=== PATIENT | female | born 1935 | race Caucasian/White ===

== ENCOUNTER 2017-04-24 14:43 | Emergency (ER) | payer MEDICARE ==
[~2017-04-24] VITALS: Ht 157.5 cm; Wt 58.0 kg
[~2017-04-24 14:43] MED LIST: ATOR20TA PO; BRIM.2%O OU; HYDR12.56; TRAV0.00 EACH EYE
[2017-04-24 14:45] VITALS: BP 123/77; PULSE 93; RESP 12; TEMP 97.8; O2SAT 97
[2017-04-24 14:48] VITALS: BP 139/71; PULSE 83; RESP 18; O2SAT 99
--- NOTE | 2017-04-24 15:18 | PD ---
HPI Chief Complaint: Neuro Symptoms/ Deficits Time Seen by Provider: 15:03 Travel History International Travel<30 days: No Contact w/Intl Traveler<30days: No Traveled to known affect area: No History of Present Illness HPI 82-year-old female with history of intracranial hemorrhage in 2014, presents to the ER today sent in by Dr. Lopez because she apparently had told his nurses about having headaches and blurry vision at the office. They sent her down here to be evaluated for these headaches. However, patient currently states her headache is a 2 out of 10, and her blurry vision is not new. Her states that she has had the same symptoms since her stroke in 2014. They deny any new issues. I have talked to Dr. Ruiz who states that he had not evaluated her and wanted her to be evaluated because the nurses stated that her headache was new. Patient reports no fevers, neck stiffness, new neurological deficits. Modifying Factors: None Associated Signs & Symptoms: Headaches, blurry vision Risk Factors: ICH PFSH Past Medical History Heart Rhythm Problems: Yes (tachycardia) Cancer: No Cardiovascular Problems: No High Cholesterol: Yes Endocrine: No Gastrointestinal Disorders: Yes (DIVERTICULITIS) Genitourinary: No Hypertension: Yes Immune Disorder: No Musculoskeletal: No Neurologic: No Psychiatric: No Reproductive: Yes (HYSTERECTOMY) Respiratory: Yes (PNEUMONIA POST OP 02/2007) Past Surgical History Abdominal Surgery: Yes (RUPTURED DIVERTICULUM WITH REPAIR AND COLOSTOMY) Arteriovenous Shunt: No Gynecologic Surgery: Yes (HYSTERECTOMY) Hysterectomy: Yes Insulin Pump: No Joint Replacement: Yes (RIGHT KNEE REPLACEMENT) Other Surgery: Yes Social History Alcohol Use: No Tobacco Use: No Substance Use: No Allergies-Medications (Allergen,Severity, Reaction): Coded Allergies: No Known Allergies (Verified , 05/12/15) Reported Meds & Prescriptions Reported Meds & Active Scripts Active Reported Hydrochlorothiazide 12.5 Mg Tab Atorvastatin 20 mg tab (Atorvastatin Calcium) 20 Mg Tab 20 Mg PO DAILY 30 Days Travatan Z (Travoprost) 0.004 % Trevor 1 Drop EACH EYE HS Alphagan 0.2% (Brimonidine Tartrate) 5 Ml Soln 1 Drop OU HS Travatan Z (Travoprost) 0.004 % Trevor 1 Drop EACH EYE HS Alphagan 0.2% (Brimonidine Tartrate) 5 Ml Soln 1 Drop OU HS Review of Systems Except as stated in HPI: all other systems reviewed are Neg Physical Exam Narrative GENERAL: Well-developed pleasant elderly white female who is awake, alert, oriented 3. Currently not in acute distress. SKIN: Focused skin assessment warm/dry. HEAD: Atraumatic. Normocephalic. EYES: Pupils equal and round. No scleral icterus. No injection or drainage. ENT: No nasal bleeding or discharge. Mucous membranes pink and moist. NECK: Trachea midline. No JVD. CARDIOVASCULAR: Regular rate and rhythm. No murmur appreciated. RESPIRATORY: No accessory muscle use. Clear to auscultation. Breath sounds equal bilaterally. GASTROINTESTINAL: Abdomen soft, non-tender, nondistended. Hepatic and splenic margins not palpable. MUSCULOSKELETAL: No obvious deformities. No clubbing. No cyanosis. No edema. NEUROLOGICAL: Awake and alert. No obvious cranial nerve deficits. Motor grossly within normal limits. Normal speech. Ambulatory without issues. PSYCHIATRIC: Appropriate mood and affect; insight and judgment normal. Data Data Last Documented VS Vital Signs Date Time Temp Pulse Resp B/P Pulse Ox O2 Delivery O2 Flow Rate FiO2 04/24/17 14:48 83 18 139/71 99 04/24/17 14:45 97.8 MDM Medical Decision Making Medical Screen Exam Complete: Yes Emergency Medical Condition: Yes Medical Record Reviewed: Yes Differential Diagnosis Headaches and blurry vision which are chronic Narrative Course At this point, both patient and state that they are not having any new symptoms. They are uncertain why they were sent to the ER. I talked to them regarding the concerns and have offered to do a CAT scan but they state that they are following up next month with Dr. Valdivia and they get yearly CAT scans. They're declining getting further testing at this time. Return for new issues as needed. The plan was discussed with patient and and they state understanding. Diagnosis Primary Impression: Chronic headaches Disposition: 01 DISCHARGE HOME Condition: Stable Ahsan Gonzalez MD Apr 24, 2017 15:18
== END 2017-04-24 15:50 | disposition home or self-care (01) ==
LOC: NEPC 14:43
DX: R51 Headache (principal); H53.8 Other visual disturbances; I10 Essential (primary) hypertension
CPT/HCPCS: 99281

== ENCOUNTER 2018-04-04 10:08 | Observation (INO) | payer MEDICARE ==
[~2018-04-04] VITALS: Ht 157.5 cm; Wt 52.0 kg
[2018-04-04 10:27] VITALS: BP 115/69; PULSE 115; RESP 24; TEMP 97.3; O2SAT 97
[2018-04-04] MEDS ORDERED: BRIM0.155 EACH EYE (11:25)
[2018-04-04] MEDS ORDERED: LATA0.002 EACH EYE (11:25)
[2018-04-04] MEDS ORDERED: HYDR12.57 PO (11:25)
[2018-04-04] MEDS ORDERED: ATOR20TA15 PO (11:25)
[2018-04-04] MEDS ORDERED: SODIUM CHLOR 0.9% 1000 ML INJ 1,000 ML IV SCH (11:43)
[2018-04-04] MEDS ORDERED: SODIUM CHLORIDE 0.9% FLUSH 10 ML FLUSH IV FLUSH PRN ×2 (11:45→17:30)
--- NOTE | 2018-04-04 12:11 | PD ---
HPI Chief Complaint: Back/ Neck Pain or Injury Time Seen by Provider: 11:43 Travel History International Travel<30 days: No Contact w/Intl Traveler<30days: No Traveled to known affect area: No History of Present Illness HPI 83-year-old female patient with history of previous ICH, multiple medical issues , presents to the ER today brought in by her because she states that she had rolled over in bed a few days ago and started having lower back pains. She also has not been eating well or drinking well according to her for several days. She states that she is having trouble, feels like he has to urinate all the time. She denies any fevers, no vomiting, or other issues. Modifying Factors: None Associated Signs & Symptoms: Lower back pain, poor p.o. intake, urinary symptoms Risk Factors: None PFSH Past Medical History Heart Rhythm Problems: Yes (tachycardia) Cancer: No Cardiovascular Problems: No High Cholesterol: Yes Cerebrovascular Accident: Yes Endocrine: No Gastrointestinal Disorders: Yes (DIVERTICULITIS) Glaucoma: Yes Genitourinary: No Hypertension: Yes Immune Disorder: No Musculoskeletal: No Neurologic: No Psychiatric: No Reproductive: Yes (HYSTERECTOMY) Respiratory: Yes (PNEUMONIA POST OP 02/2007) Past Surgical History Abdominal Surgery: Yes (RUPTURED DIVERTICULUM WITH REPAIR) Arteriovenous Shunt: No Gynecologic Surgery: Yes (HYSTERECTOMY) Hysterectomy: Yes Insulin Pump: No Joint Replacement: Yes (RIGHT KNEE REPLACEMENT) Other Surgery: Yes Social History Alcohol Use: No Tobacco Use: No Substance Use: No Allergies-Medications (Allergen,Severity, Reaction): Coded Allergies: No Known Allergies (Verified , 05/12/15) Reported Meds & Prescriptions Reported Meds & Active Scripts Active Reported Latanoprost Opth Drops (Latanoprost) 0.005% Drops 1 Drop EACH EYE HS Refrigerate until opened. Hydrochlorothiazide 12.5 Mg Cap 12.5 Mg PO DAILY Brimonidine Opth Drops (Brimonidine Tartrate) 0.15% Soln 1 Drop EACH EYE TID Atorvastatin (Atorvastatin Calcium) 20 Mg Tab 20 Mg PO HS Hydrochlorothiazide (Miscellaneous Medication) 12.5 Mg Tab Atorvastatin 20 mg tab (Atorvastatin Calcium) 20 Mg Tab 20 Mg PO DAILY 30 Days Travatan Z (Travoprost) 0.004 % Trevor 1 Drop EACH EYE HS Alphagan 0.2% (Brimonidine Tartrate) 5 Ml Soln 1 Drop OU HS Travatan Z (Travoprost) 0.004 % Trevor 1 Drop EACH EYE HS Alphagan 0.2% (Brimonidine Tartrate) 5 Ml Soln 1 Drop OU HS Review of Systems ROS Limitations: Poor Historian Except as stated in HPI: all other systems reviewed are Neg Physical Exam Narrative GENERAL: Well-developed elderly white female patient currently in mild distress. Awake and alert, oriented 3. SKIN: Focused skin assessment warm/dry. HEAD: Atraumatic. Normocephalic. EYES: Pupils equal and round. No scleral icterus. No injection or drainage. ENT: No nasal bleeding or discharge. Mucous membranes pink and moist. NECK: Trachea midline. No JVD. CARDIOVASCULAR: Regular rate and rhythm. No murmur appreciated. RESPIRATORY: No accessory muscle use. Clear to auscultation. Breath sounds equal bilaterally. GASTROINTESTINAL: Abdomen soft, mild lower abdominal tenderness with a little bit more right-sided tenderness without guarding or rebound, nondistended. Hepatic and splenic margins not palpable. MUSCULOSKELETAL: No obvious deformities. No clubbing. No cyanosis. No edema. BACK: No CVA tenderness. No rash. No point tenderness on palpation of the spine. NEUROLOGICAL: Awake and alert. No obvious cranial nerve deficits. Motor grossly within normal limits. Normal speech. PSYCHIATRIC: Appropriate mood and affect; insight and judgment normal. Data Data Last Documented VS Vital Signs Date Time Temp Pulse Resp B/P (MAP) Pulse Ox O2 Delivery O2 Flow Rate FiO2 04/04/18 15:29 101 18 152/65 (94) 98 Room Air 04/04/18 10:27 97.3 Orders Orders Complete Blood Count With Diff (04/04/18 11:43) Comprehensive Metabolic Panel (04/04/18 11:43) Lipase (04/04/18 11:43) Prothrombin Time / Inr (Pt) (04/04/18 11:43) Act Partial Throm Time (Ptt) (04/04/18 11:43) Urinalysis - C+S If Indicated (04/04/18 11:43) Ct Abd/Pel W Iv Contrast(Rout) (04/04/18 11:43) Iv Access Insert/Monitor (04/04/18 11:43) Ecg Monitoring (04/04/18 11:43) Oximetry (04/04/18 11:43) Sodium Chlor 0.9% 1000 Ml Inj (Ns 1000 M (04/04/18 11:43) Sodium Chloride 0.9% Flush (Ns Flush) (04/04/18 11:45) Ct Thor Spine W/O Contrast (04/04/18 11:43) Potassium Chlor 20 Meq Premix (Kcl 20 Me (04/04/18 14:30) Ct Lumb Spine W Iv Contrast (04/04/18 11:43) Iohexol 350 Inj (Omnipaque 350 Inj) (04/04/18 15:02) Labs Laboratory Tests Test 04/04/18 13:20 04/04/18 15:35 White Blood Count 10.2 TH/MM3 Red Blood Count 5.04 MIL/MM3 Hemoglobin 14.8 GM/DL Hematocrit 43.1 % Mean Corpuscular Volume 85.6 FL Mean Corpuscular Hemoglobin 29.4 PG Mean Corpuscular Hemoglobin Concent 34.3 % Red Cell Distribution Width 14.8 % Platelet Count 281 TH/MM3 Mean Platelet Volume 7.0 FL Neutrophils (%) (Auto) 79.3 % Lymphocytes (%) (Auto) 11.6 % Monocytes (%) (Auto) 8.1 % Eosinophils (%) (Auto) 0.3 % Basophils (%) (Auto) 0.7 % Neutrophils # (Auto) 8.1 TH/MM3 Lymphocytes # (Auto) 1.2 TH/MM3 Monocytes # (Auto) 0.8 TH/MM3 Eosinophils # (Auto) 0.0 TH/MM3 Basophils # (Auto) 0.1 TH/MM3 CBC Comment DIFF FINAL Differential Comment Prothrombin Time 10.4 SEC Prothromb Time International Ratio 1.0 RATIO Activated Partial Thromboplast Time 23.6 SEC Blood Urea Nitrogen 19 MG/DL Creatinine 1.00 MG/DL Random Glucose 87 MG/DL Total Protein 8.8 GM/DL Albumin 3.7 GM/DL Calcium Level 9.6 MG/DL Alkaline Phosphatase 105 U/L Aspartate Amino Transf (AST/SGOT) 55 U/L Alanine Aminotransferase (ALT/SGPT) 47 U/L Total Bilirubin 1.7 MG/DL Sodium Level 134 MEQ/L Potassium Level 2.8 MEQ/L Chloride Level 93 MEQ/L Carbon Dioxide Level 27.6 MEQ/L Anion Gap 13 MEQ/L Estimat Glomerular Filtration Rate 53 ML/MIN Lipase 134 U/L Urine Color LIGHT-YELLOW Urine Turbidity CLEAR Urine pH 8.0 Urine Specific Sylvester 1.047 Urine Protein TRACE mg/dL Urine Glucose (UA) NEG mg/dL Urine Ketones 40 mg/dL Urine Occult Blood TRACE Urine Nitrite NEG Urine Bilirubin NEG Urine Urobilinogen LESS THAN 2.0 MG/DL Urine Leukocyte Esterase NEG Urine RBC 2 /hpf Urine WBC 3 /hpf Urine Squamous Epithelial Cells <1 /hpf Urine Mucus FEW /lpf Microscopic Urinalysis Comment CULT NOT INDICATED MDM Medical Decision Making Medical Screen Exam Complete: Yes Emergency Medical Condition: Yes Medical Record Reviewed: Yes Interpretation(s) Laboratory Tests Test 04/04/18 13:20 04/04/18 15:35 Neutrophils (%) (Auto) 79.3 % (16.0-70.0) Monocytes (%) (Auto) 8.1 % (0.0-8.0) Neutrophils # (Auto) 8.1 TH/MM3 (1.8-7.7) Activated Partial Thromboplast Time 23.6 SEC (24.3-30.1) Blood Urea Nitrogen 19 MG/DL (7-18) Total Protein 8.8 GM/DL (6.4-8.2) Aspartate Amino Transf (AST/SGOT) 55 U/L (15-37) Total Bilirubin 1.7 MG/DL (0.2-1.0) Sodium Level 134 MEQ/L (136-145) Potassium Level 2.8 MEQ/L (3.5-5.1) Chloride Level 93 MEQ/L (98-107) Estimat Glomerular Filtration Rate 53 ML/MIN (>89) Urine Specific Sylvester 1.047 (1.002-1.035) Urine Ketones 40 mg/dL (NEG) Urine Occult Blood TRACE (NEG) Urine Mucus FEW /lpf (OCC) Last 24 hours Impressions [address] Spine CT 04/04/18 1143 Signed Impressions: CONCLUSION: 1. Minimal compression deformity of T8, probably subacute or old. Mild scolios is and kyphosis. No canal stenosis. Lumbar Spine CT 04/04/18 1143 Signed Impressions: CONCLUSION: 1. Rotatory lumbar levoscoliosis with moderate degenerative disc disease. No a cute fracture or spondylolisthesis. Multilevel lateral recess encroachment as a dean without significant central bony canal stenosis. Abdomen/Pelvis CT 04/04/18 1143 Signed Impressions: CONCLUSION: 1. Large 7.7 x 7.6 cm simple density cyst in the inferior pole the right kidne y. 2. Levoscoliosis of the lumbar spine centered at L2-3 level with degenerative spondylosis but no definite compression deformity. 3. Otherwise, no acute CT findings to explain patient's back pain. 4. Aorta is nonaneurysmal and without significant dissection. 5. Ancillary findings include mild bibasilar scarring, subcentimeter renal cys tic lesions which are too small to fully characterize, fat-containing anterior abdominal wall hernia and mild sigmoid diverticulosis. Differential Diagnosis UTI versus gastroenteritis versus appendicitis versus acute on chronic back pains versus spinal fractures Narrative Course CAT scan shows some signs of degenerative disc disease, renal cysts on the right , but did not show any signs of other acute processes. No signs of aortic aneurysms or obvious signs of diverticulitis, or other acute processes. Lab work was otherwise fairly unremarkable. She is not vomiting in the ER. However , she has a fairly low potassium. IV fluids and IV potassium was given in the ER. Planning to admit the patient as an observation for further treatment. She stopped having tremors after the IV potassium and been initiated. Case was discussed with Dr. Penn for admission. Diagnosis Primary Impression: Hypokalemia Additional Impression: Dehydration Admitting Information Admitting Physician Requests: Admit Ahsan Gonzalez MD April 04, 2018 12:11
[2018-04-04 13:44] LABS: AUTOMATED NEUTROPHIL # 8.1 TH/MM3 (1.8-7.7); BASOPHIL # 0.1 TH/MM3 (0-0.2); BASOPHIL % 0.7 % (0.0-2.0); EOSINOPHIL % 0.3 % (0.0-4.0); HEMATOCRIT 43.1 % (35.0-46.0); HEMOGLOBIN 14.8 GM/DL (11.6-15.3); LYMPH % 11.6 % (9.0-44.0); LYMPHOCYTE # 1.2 TH/MM3 (1.0-4.8); MEAN CELL VOLUME 85.6 FL (80.0-100.0); MEAN CORPUSCULAR HEMOGLOBIN 29.4 PG (27.0-34.0); MEAN CORPUSCULAR HGB CONC 34.3 % (32.0-36.0); MONO % 8.1 % (0.0-8.0); MONOCYTE # 0.8 TH/MM3 (0-0.9); NEUT % 79.3 % (16.0-70.0); PLATELET COUNT 281 TH/MM3 (150-450); RED BLOOD COUNT 5.04 MIL/MM3 (4.00-5.30); RED CELL DISTRIBUTION WIDTH 14.8 % (11.6-17.2); WHITE BLOOD COUNT 10.2 TH/MM3 (4.0-11.0)
[2018-04-04 13:52] LABS: PROTHROMBIN TIME - PATIENT 10.4 SEC (9.8-11.6)
[2018-04-04 14:08] LABS: ALBUMIN 3.7 GM/DL (3.4-5.0); ALKALINE PHOSPHATASE 105 U/L (45-117); ALT (GPT) 47 U/L (10-53); AST (GOT) 55 U/L (15-37); BICARBONATE 27.6 MEQ/L (21.0-32.0); BLOOD UREA NITROGEN 19 MG/DL (7-18); CALCIUM 9.6 MG/DL (8.5-10.1); CHLORIDE 93 MEQ/L (98-107); GLOMERULAR FILTRATION RATE 53 ML/MIN (>89); GLUCOSE,RANDOM 87 MG/DL (74-106); SODIUM (NA) 134 MEQ/L (136-145); TOTAL BILIRUBIN ADULT 1.7 MG/DL (0.2-1.0); TOTAL PROTEIN 8.8 GM/DL (6.4-8.2)
[2018-04-04] MEDS ORDERED: IOHEXOL 350 MG/ML 10 ML VIAL (for RAD DIAG) IVCONTRAST ONE (15:02)
--- NOTE | 2018-04-04 15:13 | RADRPT ---
EXAM DATE: 04/04/2018 3:01 PM EDT AGE/SEX: 83 years / Female INDICATIONS: Back pain for 2 days CLINICAL DATA: This is the patient's initial encounter. Patient reports that signs and symptoms have been present for 2 days and indicates a pain score of 8/10. MEDICAL/SURGICAL HISTORY: Hypertension. Diverticulitis. Colostomy. ORAL CONTRAST: No oral contrast ingested. RADIATION DOSE: 4.98 CTDI (mGy) COMPARISON: No prior [facility] exams available for comparison. TECHNIQUE: Multiple contiguous axial images were obtained through the abdomen and pelvis following b olus infusion of 96 ml Omnipaque 350 (iohexol) nonionic water-soluble contrast as a cumulative dose for multiple exams. No oral contrast ingested. Using automated exposure control and adjustment of t he mA and/or kV according to patient size, the radiation dose was kept as low as reasonably achievabl e to obtain optimal diagnostic quality images. FINDINGS: LOWER LUNGS: Minimal linear scarring at the lung bases. LIVER: The liver has a homogeneous density without space-occupying lesion. There is no dilation of t he biliary tree. SPLEEN: Homogeneous density without enlargement. PANCREAS: Unremarkable without mass or calcification. KIDNEYS: Kidneys demonstrate symmetrical enhancement and are symmetrical in size. There is a large 7 .7 x 7.6 cm simple density cysts arising from the inferior pole of the right kidney. Additional subce ntimeter bilateral renal hypodense cystic lesions are too small to fully characterize. ADRENAL GLANDS: Unremarkable. AORTA: Tess-aneurysmal. No significant dissection. BOWEL/MESENTERY: Mild sigmoid diverticulosis without significant inflammatory changes. Appendix is v isualized and normal in appearance. No dilated loops of bowel. No pneumatosis or free air. ABDOMINAL WALL: [place] fat containing anterior abdominal wall hernia. RETROPERITONEUM: No evidence of adenopathy in the retrocrural, para-aortic, or deep pelvic regions. BLADDER: Contours are smooth. REPRODUCTIVE: Uterus is not visualized and likely surgically absent. BONY STRUCTURES: Levoscoliosis of the lumbar spine centered at L2-3 level. Associated multilevel deg enerative spondylosis. Vertebral body heights are grossly intact without acute fracture. CONCLUSION: 1. Large 7.7 x 7.6 cm simple density cyst in the inferior pole the right kidney. 2. Levoscoliosis of the lumbar spine centered at L2-3 level with degenerative spondylosis but no def inite compression deformity. 3. Otherwise, no acute CT findings to explain patient's back pain. 4. Aorta is nonaneurysmal and without significant dissection. 5. Ancillary findings include mild bibasilar scarring, subcentimeter renal cystic lesions which are too small to fully characterize, fat-containing anterior abdominal wall hernia and mild sigmoid diver ticulosis. Electronically signed by: Panfilo Khan MD 04/04/2018 3:11 PM EDT
[2018-04-04] MEDS: POTASSIUM CHLOR 20 MEQ PREMIX 100 ML IV SCH ×2 (15:28→18:00)
[2018-04-04 15:29] VITALS: BP 152/65; PULSE 101; RESP 18; O2SAT 98
--- NOTE | 2018-04-04 15:29 | RADRPT ---
EXAM DATE: 04/04/2018 3:13 PM EDT AGE/SEX: 83 years / Female INDICATIONS: Back pain for 2 days CLINICAL DATA: This is the patient's initial encounter. Patient reports that signs and symptoms have been present for 2 days and indicates a pain score of 8/10. MEDICAL/SURGICAL HISTORY: Hypertension. Diverticulitis. Colostomy. RADIATION DOSE: 13.44 CTDI (mGy) COMPARISON: No prior [facility] exams available for comparison. TECHNIQUE: Contiguous axial images were acquired using a multirow detector CT scanner without contra st. Multiplanar reconstruction in the sagittal and coronal planes was performed. Using automated exp osure control and adjustment of the mA and/or kV according to patient size, radiation dose was kept a s low as reasonably achievable to obtain optimal diagnostic quality images. FINDINGS: There is a minimal superior endplate compression deformity of T8 which is probably subacute or old. N o other compression deformities identified. There is no significant canal or foraminal stenosis. Mild dextroscoliosis. CONCLUSION: 1. Minimal compression deformity of T8, probably subacute or old. Mild scoliosis and kyphosis. No ca nal stenosis. Electronically signed by: Forrest Carrizales MD 04/04/2018 3:28 PM EDT
--- NOTE | 2018-04-04 15:52 | RADRPT ---
EXAM DATE: 04/04/2018 3:37 PM EDT AGE/SEX: 83 years / Female INDICATIONS: Back pain for 2 days CLINICAL DATA: This is the patient's initial encounter. Patient reports that signs and symptoms have been present for 2 days and indicates a pain score of 8/10. MEDICAL/SURGICAL HISTORY: Hypertension. Diverticulitis. Colostomy. RADIATION DOSE: . CTDI (mGy) ; Reconstructed from previous dataset, no dose COMPARISON: No prior [facility] exams available for comparison. TECHNIQUE: Contiguous axial images were acquired with a multirow detector CT scanner after intraveno us administration of 96 ml Omnipaque 350 (iohexol) nonionic water-soluble contrast as a cumulative d ose for multiple exams. Multiplanar reconstructions in the sagittal and coronal plane were also perf ormed. Using automated exposure control and adjustment of the mA and/or kV according to patient size, radiation dose was kept as low as reasonably achievable to obtain optimal diagnostic quality images. FINDINGS: There is a mild rotatory lumbar levoscoliosis. There is no acute fracture. At [id number] there is p osterior disc ossify complex with mild encroachment on the lateral recesses bilaterally. At L3-4 there is a broad-based posterior disc osteophyte complex resulting in mild to moderate stenos is of the lateral recesses and mild foraminal encroachment. At L4-5 there is a posterior disc osteophyte complex with mild encroachment on the lateral recesses a nd neural foramina. At L5-S1 there is a broad-based posterior disc bulge and facet arthropathy with mild bilateral forami nal encroachment. CONCLUSION: 1. Rotatory lumbar levoscoliosis with moderate degenerative disc disease. No acute fracture or spond ylolisthesis. Multilevel lateral recess encroachment as above without significant central bony canal stenosis. Electronically signed by: Forrest Carrizales MD 04/04/2018 3:51 PM EDT
[2018-04-04 16:19] LABS: BILIRUBIN, URINE NEG (NEG); BLOOD, URINE TRACE (NEG); GLUCOSE,URINE NEG (NEG); KETONE, URINE 40 mg/dL (NEG); MUCUS URINE FEW /lpf (OCC); NITRITE,URINE NEG (NEG); SQUAMOUS EPITHELIAL CELL URINE <1 /hpf (0-5); URINE COLOR LIGHT-YELLOW (YELLW/STRAW); URINE LEUKOCYTE ESTERASE NEG (NEG)
[2018-04-04] MEDS ORDERED: BISACODYL 10 MG SUPP RECTAL PRN (17:30)
[2018-04-04] MEDS ORDERED: POTASSIUM CHLORIDE 20 MEQ CONTROLLED RELEASE TAB PO ONE (17:30)
[2018-04-04] MEDS ORDERED: LACTULOSE SYRUP 20 GM/30 ML CUP PO PRN (17:30)
[2018-04-04] MEDS ORDERED: MAGNESIUM HYDROXIDE SUSP 30 ML CUP PO PRN (17:30)
[2018-04-04] MEDS ORDERED: NALOXONE HCL 0.4 MG/ML AMP IV PUSH PRN (17:30)
[2018-04-04] MEDS ORDERED: SENNOSIDES 8.6 MG TAB PO PRN (17:30)
[2018-04-04] MEDS ORDERED: POTASSIUM CHLOR 10 MEQ PREMIX 100 ML IV SCH (18:00)
[2018-04-04 18:45] VITALS: BP 148/68; PULSE 90; RESP 18; O2SAT 97
--- NOTE | 2018-04-04 19:46 | HHI.HP ---
[facility] Primary Care Physician Annabella Curiel MD Admission Diagnosis Poor p.o. intake/dehydration/hypokalemia Diagnoses: Chief Complaint: Back and neck pain Travel History International Travel<30 Days: No Contact w/Intl Traveler <30 Da: No Traveled to Known Affected Are: No History of Present Illness Ms. Beltrán is an 83-year-old female with a long history of low back pain who presents to the emergency department on 04/04/2018 due to worsening lower back pain. She also has not been eating or drinking well. Patient denies any fever chills. She also denies any bowel or bladder control problems. She is resting in bed but reports significant pain on movement. She has not tried to stand up or walk. At the time of this interview, patient expresses desire to go home. She has a walker and brace at home. She follows up with Dr. Francois Osborn. Review of Systems Except as stated in HPI: all other systems reviewed are Neg Past Family Social History Past Medical History Diverticulitis, hyperlipidemia, glaucoma, intracranial hemorrhage Past Surgical History Hysterectomy, ruptured diverticulum with repair, right knee replacement. Reported Medications Latanoprost Opth Drops (Latanoprost) 0.005% Drops 1 Drop EACH EYE HS Refrigerate until opened. Hydrochlorothiazide 12.5 Mg Cap 12.5 Mg PO DAILY Brimonidine Opth Drops (Brimonidine Tartrate) 0.15% Soln 1 Drop EACH EYE TID Atorvastatin (Atorvastatin Calcium) 20 Mg Tab 20 Mg PO HS Hydrochlorothiazide (Miscellaneous Medication) 12.5 Mg Tab Atorvastatin 20 mg tab (Atorvastatin Calcium) 20 Mg Tab 20 Mg PO DAILY 30 Days Travatan Z (Travoprost) 0.004 % Trevor 1 Drop EACH EYE HS Alphagan 0.2% (Brimonidine Tartrate) 5 Ml Soln 1 Drop OU HS Travatan Z (Travoprost) 0.004 % Trevor 1 Drop EACH EYE HS Alphagan 0.2% (Brimonidine Tartrate) 5 Ml Soln 1 Drop OU HS Allergies: Coded Allergies: No Known Allergies (Verified , 05/12/15) Family History No family history of Alzheimer's or Parkinson's disease. Social History Alcohol Use: No Tobacco Use: No Substance Use: No Physical Exam Vital Signs Vital Signs Date Time Temp Pulse Resp B/P (MAP) Pulse Ox O2 Delivery O2 Flow Rate FiO2 04/04/18 18:45 90 18 148/68 (94) 97 Room Air 04/04/18 15:29 101 18 152/65 (94) 98 Room Air 04/04/18 13:21 18 04/04/18 10:27 97.3 115 24 115/69 (84) 97 Physical Exam GENERAL: This is a well-nourished, well-developed patient, in no apparent distress. SKIN: No rashes, ecchymoses or lesions. Warm and dry. HEAD: Atraumatic. Normocephalic. No temporal or scalp tenderness. EYES: Pupils equal round and reactive. No injection or drainage. ENT: Nose without bleeding, purulent drainage or septal hematoma. Airway patent. NECK: Trachea midline. No lymphadenopathy. Supple, nontender, no meningeal signs. CARDIOVASCULAR: Regular rate and rhythm without murmurs, gallops, or rubs. No JVD. RESPIRATORY: Clear to auscultation. Breath sounds equal bilaterally. No wheezes , rales, or rhonchi. GASTROINTESTINAL: Abdomen soft, non-tender, nondistended. No guarding. MUSCULOSKELETAL: Extremities without clubbing, cyanosis, or edema. NEUROLOGICAL: Awake and alert. Cranial nerves II through XII intact. No focal neurological deficits. Normal speech. Laboratory Laboratory Tests Test 04/04/18 13:20 04/04/18 15:35 White Blood Count 10.2 Red Blood Count 5.04 Hemoglobin 14.8 Hematocrit 43.1 Mean Corpuscular Volume 85.6 Mean Corpuscular Hemoglobin 29.4 Mean Corpuscular Hemoglobin Concent 34.3 Red Cell Distribution Width 14.8 Platelet Count 281 Mean Platelet Volume 7.0 Neutrophils (%) (Auto) 79.3 Lymphocytes (%) (Auto) 11.6 Monocytes (%) (Auto) 8.1 Eosinophils (%) (Auto) 0.3 Basophils (%) (Auto) 0.7 Neutrophils # (Auto) 8.1 Lymphocytes # (Auto) 1.2 Monocytes # (Auto) 0.8 Eosinophils # (Auto) 0.0 Basophils # (Auto) 0.1 CBC Comment DIFF FINAL Differential Comment Prothrombin Time 10.4 Prothromb Time International Ratio 1.0 Activated Partial Thromboplast Time 23.6 Blood Urea Nitrogen 19 Creatinine 1.00 Random Glucose 87 Total Protein 8.8 Albumin 3.7 Calcium Level 9.6 Alkaline Phosphatase 105 Aspartate Amino Transf (AST/SGOT) 55 Alanine Aminotransferase (ALT/SGPT) 47 Total Bilirubin 1.7 Sodium Level 134 Potassium Level 2.8 Chloride Level 93 Carbon Dioxide Level 27.6 Anion Gap 13 Estimat Glomerular Filtration Rate 53 Magnesium Level 2.4 Lipase 134 Urine Color LIGHT-YELLOW Urine Turbidity CLEAR Urine pH 8.0 Urine Specific [place] 1.047 Urine Protein TRACE Urine Glucose (UA) NEG Urine Ketones 40 Urine Occult Blood TRACE Urine Nitrite NEG Urine Bilirubin NEG Urine Urobilinogen LESS THAN 2.0 Urine Leukocyte Esterase NEG Urine RBC 2 Urine WBC 3 Urine Squamous Epithelial Cells <1 Urine Mucus FEW Microscopic Urinalysis Comment CULT NOT INDICATED Result Diagram: 04/04/18 1320 04/04/18 1320 Imaging Last Impressions Thoracic Spine CT 04/04/18 1143 Signed Impressions: CONCLUSION: 1. Minimal compression deformity of T8, probably subacute or old. Mild scolios is and kyphosis. No canal stenosis. Lumbar Spine CT 04/04/18 1143 Signed Impressions: CONCLUSION: 1. Rotatory lumbar levoscoliosis with moderate degenerative disc disease. No a cute fracture or spondylolisthesis. Multilevel lateral recess encroachment as a dean without significant central bony canal stenosis. Abdomen/Pelvis CT 04/04/18 1143 Signed Impressions: CONCLUSION: 1. Large 7.7 x 7.6 cm simple density cyst in the inferior pole the right kidne y. 2. Levoscoliosis of the lumbar spine centered at L2-3 level with degenerative spondylosis but no definite compression deformity. 3. Otherwise, no acute CT findings to explain patient's back pain. 4. Aorta is nonaneurysmal and without significant dissection. 5. Ancillary findings include mild bibasilar scarring, subcentimeter renal cys tic lesions which are too small to fully characterize, fat-containing anterior abdominal wall hernia and mild sigmoid diverticulosis. Caprini VTE Risk Assessment Caprini VTE Risk Assessment: Mod/High Risk (score >= 2) Caprini Risk Assessment Model Point Value = 1 Point Value = 2 Point Value = 3 Point Value = 5 Age 41-60 Minor surgery BMI > 25 kg/m2 Swollen legs Varicose veins or History of unexplained or recurrent spontaneous Oral contraceptives or hormone replacement Sepsis (< 1 month) Serious lung disease, including pneumonia (< 1 month) Abnormal pulmonary function Acute myocardial infarction Congestive heart failure (< 1 month) History of inflammatory bowel disease Medical patient at bed rest Age 61-74 Arthroscopic surgery Major open surgery (> 45 min) Laparoscopic surgery (> 45 min) Malignancy Confined to bed (> 72 hours) Immobilizing plaster cast Central venous access Age >= 75 History of VTE Family history of VTE Factor V Leiden Prothrombin [id number] Lupus anticoagulant Anticardiolipin antibodies Elevated serum homocysteine Heparin-induced thrombocytopenia Other congenital or acquired thrombophilia Stroke (< 1 month) Elective arthroplasty Hip, pelvis, or leg fracture Acute spinal cord injury (< 1 month) Prophylaxis Regimen Total Risk Factor Score Risk Level Prophylaxis Regimen 0-1 Low Early ambulation 2 Moderate Order ONE of the following: *Sequential Compression Device (SCD) *Heparin 5000 units SQ BID 3-4 Higher Order ONE of the following medications: *Heparin 5000 units SQ TID *Enoxaparin/Lovenox 40 mg SQ daily (WT < 150 kg, CrCl > 30 mL/min) *Enoxaparin/Lovenox 30 mg SQ daily (WT < 150 kg, CrCl > 10-29 mL/min) *Enoxaparin/Lovenox 30 mg SQ BID (WT < 150 kg, CrCl > 30 mL/min) AND/OR *Sequential Compression Device (SCD) 5 or more Highest Order ONE of the following medications: *Heparin 5000 units SQ TID (Preferred with Epidurals) *Enoxaparin/Lovenox 40 mg SQ daily (WT < 150 kg, CrCl > 30 mL/min) *Enoxaparin/Lovenox 30 mg SQ daily (WT < 150 kg, CrCl > 10-29 mL/min) *Enoxaparin/Lovenox 30 mg SQ BID (WT < 150 kg, CrCl > 30 mL/min) AND *Sequential Compression Device (SCD) Assessment and Plan Problem List: (1) Back pain ICD Code: M54.9 - Dorsalgia, unspecified Assessment and Plan Ms. Beltrán is a pleasant 83-year-old female with a long history of low back pain who presented to the emergency department due to worsening low back pain. She has no fever or chills and also denies any loss of control of bowel or bladder. CT imaging studies did not reveal any acute findings. Acute on chronic low back pain - PT, OT eval pending. - Patient is not able to stand up on her own. We will wait for PT recs. - Acetaminophen and [place] PRN for pain. Hypokalemia - Replaced with PO and IV KCL. Will check labs in the AM. - Mg level 2.4. - Continue IV fluid NS 75cc/hour. Full code. SCDs. Radha Rai DO April 04, 2018 7:46 pm
[2018-04-04] MEDS: BRIMONIDINE TARTRATE 0.15% OPHT SOLN 5 ML BTL EACH EYE SCH (20:32)
[2018-04-04] MEDS: SODIUM CHLOR 0.45% 1000 ML INJ 1,000 ML IV SCH (20:32)
[2018-04-04] MEDS ORDERED: ACETAMINOPHEN/HYDROcodone 325 MG/5 MG TAB PO PRN (20:45)
[2018-04-04] MEDS ORDERED: ACETAMINOPHEN 500 MG CPLT PO PRN (20:45)
[2018-04-04] MEDS ORDERED: LATANOPROST 0.005% OPHT SOLN 2.5 ML BTL EACH EYE SCH (21:00)
[2018-04-04] MEDS: SODIUM CHLORIDE 0.9% FLUSH 10 ML FLUSH IV FLUSH SCH (21:10)
[2018-04-04 21:23] VITALS: BP 112/51; PULSE 87; RESP 18; TEMP 98.1; O2SAT 98
[2018-04-04] MEDS ORDERED: LORazepam 2 MG/ML VIAL IV PUSH ONE (22:00)
[2018-04-05 04:48] VITALS: BP 127/61; PULSE 88; RESP 16; TEMP 97.7; O2SAT 97
[2018-04-05 06:42] LABS: AUTOMATED NEUTROPHIL # 4.7 TH/MM3 (1.8-7.7); BASOPHIL # 0.1 TH/MM3 (0-0.2); EOSINOPHIL # 0.4 TH/MM3 (0-0.4); EOSINOPHIL % 4.9 % (0.0-4.0); HEMATOCRIT 35.9 % (35.0-46.0); HEMOGLOBIN 12.3 GM/DL (11.6-15.3); LYMPH % 23.7 % (9.0-44.0); MEAN CELL VOLUME 86.8 FL (80.0-100.0); MEAN CORPUSCULAR HEMOGLOBIN 29.7 PG (27.0-34.0); MEAN CORPUSCULAR HGB CONC 34.2 % (32.0-36.0); MEAN PLATELET VOLUME 7.6 FL (7.0-11.0); MONO % 13.4 % (0.0-8.0); MONOCYTE # 1.1 TH/MM3 (0-0.9); PLATELET COUNT 233 TH/MM3 (150-450); RED BLOOD COUNT 4.13 MIL/MM3 (4.00-5.30); RED CELL DISTRIBUTION WIDTH 14.6 % (11.6-17.2); WHITE BLOOD COUNT 8.2 TH/MM3 (4.0-11.0)
[2018-04-05 07:04] LABS: ALBUMIN 2.7 GM/DL (3.4-5.0); ALKALINE PHOSPHATASE 76 U/L (45-117); ALT (GPT) 33 U/L (10-53); AST (GOT) 53 U/L (15-37); BICARBONATE 25.3 MEQ/L (21.0-32.0); BLOOD UREA NITROGEN 19 MG/DL (7-18); CALCIUM 8.1 MG/DL (8.5-10.1); CHLORIDE 98 MEQ/L (98-107); CREATININE 0.69 MG/DL (0.50-1.00); GLOMERULAR FILTRATION RATE 81 ML/MIN (>89); GLUCOSE,RANDOM 78 MG/DL (74-106); SODIUM (NA) 133 MEQ/L (136-145); TOTAL BILIRUBIN ADULT 0.9 MG/DL (0.2-1.0); TOTAL PROTEIN 6.8 GM/DL (6.4-8.2)
[2018-04-05 08:50] VITALS: BP 136/77; PULSE 92; RESP 18; TEMP 97.8; O2SAT 97
[2018-04-05] MEDS: BRIMONIDINE TARTRATE 0.15% OPHT SOLN 5 ML BTL EACH EYE SCH ×2 (09:00→13:56)
[2018-04-05] MEDS: SODIUM CHLORIDE 0.9% FLUSH 10 ML FLUSH IV FLUSH SCH (11:28)
[2018-04-05] MEDS: SODIUM CHLOR 0.45% 1000 ML INJ 1,000 ML IV SCH (11:28)
[2018-04-05 12:16] VITALS: BP 135/63; PULSE 84; RESP 15; TEMP 97.5; O2SAT 98
--- NOTE | 2018-04-05 12:24 | HHI.PR ---
Subjective Remarks Follow-up low back pain and decreased oral intake. Improving back pain and oral intake. She agrees to rehab. Seen with . Objective Vitals Vital Signs Date Time Temp Pulse Resp B/P (MAP) Pulse Ox O2 Delivery O2 Flow Rate FiO2 04/05/18 12:16 97.5 84 15 135/63 (87) 98 04/05/18 08:50 97.8 92 18 136/77 (96) 97 04/05/18 04:48 97.7 88 16 127/61 (83) 97 04/04/18 22:34 16 04/04/18 21:23 98.1 87 18 112/51 (71) 98 04/04/18 20:32 04/04/18 18:45 90 18 148/68 (94) 97 Room Air 04/04/18 15:29 101 18 152/65 (94) 98 Room Air 04/04/18 13:21 18 I/O 04/04/18 04/04/18 04/04/18 04/05/18 04/05/18 04/05/18 07:00 15:00 23:00 07:00 15:00 23:00 Intake Total 1000 ml 100 ml Balance 1000 ml 100 ml Intake IV Total 1000 ml 100 ml # Voids 1 Result Diagram: 04/05/18 0455 04/05/18 0455 Imaging Last Impressions Thoracic Spine CT 04/04/18 1143 Signed Impressions: CONCLUSION: 1. Minimal compression deformity of T8, probably subacute or old. Mild scolios is and kyphosis. No canal stenosis. Lumbar Spine CT 04/04/18 1143 Signed Impressions: CONCLUSION: 1. Rotatory lumbar levoscoliosis with moderate degenerative disc disease. No a cute fracture or spondylolisthesis. Multilevel lateral recess encroachment as a dean without significant central bony canal stenosis. Abdomen/Pelvis CT 04/04/18 1143 Signed Impressions: CONCLUSION: 1. Large 7.7 x 7.6 cm simple density cyst in the inferior pole the right kidne y. 2. Levoscoliosis of the lumbar spine centered at L2-3 level with degenerative spondylosis but no definite compression deformity. 3. Otherwise, no acute CT findings to explain patient's back pain. 4. Aorta is nonaneurysmal and without significant dissection. 5. Ancillary findings include mild bibasilar scarring, subcentimeter renal cys tic lesions which are too small to fully characterize, fat-containing anterior abdominal wall hernia and mild sigmoid diverticulosis. Objective Remarks GENERAL: This is a well-nourished, well-developed patient, in no apparent distress. SKIN: No rashes, ecchymoses or lesions. Warm and dry. CARDIOVASCULAR: Regular rate and rhythm without murmurs, gallops, or rubs. No JVD. RESPIRATORY: Clear to auscultation. Breath sounds equal bilaterally. No wheezes , rales, or rhonchi. GASTROINTESTINAL: Abdomen soft, non-tender, nondistended. No guarding. MUSCULOSKELETAL: Extremities without clubbing, cyanosis, or edema. NEUROLOGICAL: Awake and alert. Cranial nerves II through XII intact. No focal neurological deficits. Normal speech. Procedures none A/P Problem List: (1) Back pain ICD Code: M54.9 - Dorsalgia, unspecified Assessment and Plan Ms. Beltrná is a pleasant 83-year-old female with a long history of low back pain who presented to the emergency department due to worsening low back pain. She has no fever or chills and also denies any loss of control of bowel or bladder. CT imaging studies did not reveal any acute findings. Acute on chronic low back pain. This is musculoskeletal pain - PT reportedly recommends correction facility.. - Acetaminophen and [place] PRN for pain. Counseled regarding narcotics Hypokalemia - Replaced with PO and IV KCL. Improved we will continue daily replacement while on diuretics - Mg level 2.4. Mild AST elevation on statin. Will monitor multiple medical conditions of dementia, CVA, hyperlipidemia and hypertension. Full code. SCDs. Discharge Planning Discharge patient to correction facility Condition on discharge: Improved Regular Diet as tolerated Ad Christelle activity no driving Rx written: Potassium and Lortab Follow-up with primary care physician and orthopedic surgery Neal Armenta MD April 05, 2018 12:24
[2018-04-05] MEDS ORDERED: POTA-163 PO (12:46)
[2018-04-05] MEDS ORDERED: HYDR-3516 PO (12:46)
--- NOTE | 2018-04-05 12:46 | HHI.DCPOC ---
Discharge Care Plan Diagnosis: (1) Back pain Your Health Problems Are: Difficulty with ADL Exercise Tolerance Goals to Promote Your Health * To prevent worsening of your condition and complications * To maintain your health at the optimal level Directions to Meet Your Goals Take your medications as prescribed Follow your dietary instruction Follow activity as directed Keep your appointments as scheduled Take your immunizations and boosters as scheduled If your symptoms worsen call your PCP, if no PCP go to Urgent Care Center or Emergency Room Smoking is Dangerous to Your Health. Avoid second hand smoke Call the 24-hour hour crisis hotline for domestic abuse at Neal Armenta MD April 05, 2018 12:46
[2018-04-05 15:29] VITALS: BP 135/66; PULSE 75; RESP 18; TEMP 98.1; O2SAT 96
== END 2018-04-05 18:17 ==
LOC: NEPE 10:08 → NEDA 17:24 → NEPFCDU 20:43
PROVIDERS: ADMIT Internal Medicine; ATTEND Internal Medicine
DX: M54.5 Low back pain (principal); I61.9 Nontraumatic intracerebral hemorrhage, unspecified; R00.0 Tachycardia, unspecified; E78.00 Pure hypercholesterolemia, unspecified; Z86.73 Personal history of transient ischemic attack (TIA), and cerebral infarction without residual deficits; K57.92 Diverticulitis of intestine, part unspecified, without perforation or abscess without bleeding; I10 Essential (primary) hypertension; Z79.899 Other long term (current) drug therapy; M41.9 Scoliosis, unspecified; M51.36 Other intervertebral disc degeneration, lumbar region; N28.1 Cyst of kidney, acquired; M47.9 Spondylosis, unspecified; E87.6 Hypokalemia; E86.0 Dehydration; M54.2 Cervicalgia
CPT/HCPCS: 72128; 72132; 74177; 80053; 81001; 83690; 83735; 85025; 85610; 85730; 96361; 96365; 96366; 96375; 97162; 97167; 99285; G0378; G8987; G8988; J2060; J3480; J7030; Q9967

== ENCOUNTER 2018-04-12 19:27 | Inpatient (IN) | payer MEDICARE ==
[~2018-04-12] VITALS: Ht 152.4 cm; Wt 52.7 kg
[~2018-04-12 19:27] MED LIST changes: -ATOR20TA PO; +ATOR20TA15 PO; -BRIM.2%O OU; +BRIM0.155 EACH EYE; +HYDR-3516 PO; -HYDR12.56; +HYDR12.57 PO; +LATA0.002 EACH EYE; +POTA-163 PO; -TRAV0.00 EACH EYE
[2018-04-12 19:40] VITALS: BP 126/80; PULSE 99; RESP 18; TEMP 98.6; O2SAT 98
[2018-04-12 19:57] VITALS: BP 126/80; PULSE 96; RESP 18; O2SAT 100
[2018-04-12] MEDS ORDERED: METOCLOPRAMIDE HCL 10 MG/2 ML VIAL IV PUSH ONE (20:00)
[2018-04-12] MEDS ORDERED: MORPHINE SULFATE 4 MG/ML INJ IV PUSH ONE (20:00)
[2018-04-12 20:01] VITALS: PULSE 98; RESP 20; O2SAT 100
--- NOTE | 2018-04-12 20:29 | PD ---
HPI Chief Complaint: Fall Time Seen by Provider: 19:50 Travel History International Travel<30 days: No Contact w/Intl Traveler<30days: No Traveled to known affect area: No History of Present Illness HPI 83-year-old female that presents to the ED for evaluation of fall. Patient comes here by ambulance for evaluation of this. Apparently patient had a fall trying to possibly go to the hospital. Follow-up was not witnessed by family. Patient was seen here recently for an injury to her back was admitted and sent to a rehab facility. She has a history of dementia and per family apparently she was noncompliant with the treatment and she was getting very upset and the family decided to take her home to see if that will help her behavior. She made it home today and she has a fall today. Per family member she cannot get up. She complains of pain to her back and hips. She also states that she did hit her head. She denies take any blood thinners. She apparently does take pain medication and history of dementia. Family members provide most of the information patient is able to reliably give some information but notes entirely. She states that the pain is 10 out of 10 especially with movements of her legs on her back. She has no allergies to medication. No other medical issues. PFSH Past Medical History Asthma: No Blood Disorders: No Heart Rhythm Problems: Yes (tachycardia) Cancer: No Cardiovascular Problems: No High Cholesterol: Yes COPD: No Cerebrovascular Accident: Yes Endocrine: No Gastrointestinal Disorders: Yes (DIVERTICULITIS) Glaucoma: Yes Genitourinary: No Hypertension: Yes Immune Disorder: No Musculoskeletal: No Neurologic: No Psychiatric: No Reproductive: Yes (HYSTERECTOMY) Respiratory: Yes (PNEUMONIA POST OP 02/2007) Sleep Apnea: No Past Surgical History Abdominal Surgery: Yes (RUPTURED DIVERTICULUM WITH REPAIR) Arteriovenous Shunt: No Gynecologic Surgery: Yes (HYSTERECTOMY) Hysterectomy: Yes Insulin Pump: No Joint Replacement: Yes (RIGHT KNEE REPLACEMENT) Other Surgery: Yes Social History Alcohol Use: No Tobacco Use: No Substance Use: No Allergies-Medications (Allergen,Severity, Reaction): Coded Allergies: No Known Allergies (Verified , 05/12/15) Reported Meds & Prescriptions Reported Meds & Active Scripts Active Potassium Chloride ER (Potassium Chloride) 20 Meq Tab 20 Meq PO DAILY Hydrocodone-Acetamin 5-325 mg (Hydrocodone/Acetaminophen) 5 Mg-325 Mg Tablet 1 Tab PO Q6H PRN Reported Latanoprost Opth Drops (Latanoprost) 0.005% Drops 1 Drop EACH EYE HS Refrigerate until opened. Hydrochlorothiazide 12.5 Mg Cap 12.5 Mg PO DAILY Brimonidine Opth Drops (Brimonidine Tartrate) 0.15% Soln 1 Drop EACH EYE TID Atorvastatin (Atorvastatin Calcium) 20 Mg Tab 20 Mg PO HS Review of Systems Except as stated in HPI: all other systems reviewed are Neg Physical Exam Narrative GENERAL: SKIN: Warm and dry. HEAD: Atraumatic. Normocephalic. EYES: Pupils equal and round. No scleral icterus. No injection or drainage. ENT: No nasal bleeding or discharge. Mucous membranes pink and moist. Tongue is midline. No uvula deviation. NECK: Trachea midline. No JVD. CARDIOVASCULAR: Regular rate and rhythm. No murmurs, S3, S4. RESPIRATORY: No accessory muscle use. Clear to auscultation. Breath sounds equal bilaterally. GASTROINTESTINAL: Abdomen soft, non-tender, nondistended. Hepatic and splenic margins not palpable. MUSCULOSKELETAL: Extremities without clubbing, cyanosis, or edema. No obvious deformities. Full range of motion of the upper extremities. Pain with range of motion of the lower extremities is the back. More with the left than the right. She is able to move it herself however. 2+ pulses bilaterally. NEUROLOGICAL: Awake and alert. No obvious cranial nerve deficits. Motor grossly within normal limits. Five out of 5 muscle strength in the arms and legs. Normal speech. PSYCHIATRIC: Appropriate mood and affect; insight and judgment normal. Data Data Last Documented VS Vital Signs Date Time Temp Pulse Resp B/P (MAP) Pulse Ox O2 Delivery O2 Flow Rate FiO2 04/12/18 20:01 98 20 100 Room Air 04/12/18 19:40 98.6 Orders Orders Complete Blood Count With Diff (04/12/18 19:56) Basic Metabolic Panel (Bmp) (04/12/18 19:56) Urinalysis - C+S If Indicated (04/12/18 19:56) Magnesium (Mg) (04/12/18 19:56) Chest, Single Ap (04/12/18 19:56) Ct Brain W/O Iv Contrast(Rout) (04/12/18 19:56) Iv Access Insert/Monitor (04/12/18 19:56) Ecg Monitoring (04/12/18 19:56) Oximetry (04/12/18 19:56) Ct Lumb Spine W/O Contrast (04/12/18 ) Ct Cerv Spine W/O Contrast (04/12/18 ) Ct Thor Spine W/O Contrast (04/12/18 ) Morphine Inj (Morphine Inj) (04/12/18 20:00) Metoclopramide Inj (Reglan Inj) (04/12/18 20:00) Pelvis, Ap Only (Routine) (04/12/18 19:56) Femur, One View (04/12/18 ) Femur, One View (04/12/18 ) Ct Pelvis W/O Iv Contrast (04/12/18 ) Urinary Catheter Insert/Apply (04/12/18 21:41) Labs Laboratory Tests Test 04/12/18 20:57 White Blood Count 13.4 TH/MM3 Red Blood Count 4.44 MIL/MM3 Hemoglobin 13.1 GM/DL Hematocrit 38.5 % Mean Corpuscular Volume 86.7 FL Mean Corpuscular Hemoglobin 29.6 PG Mean Corpuscular Hemoglobin Concent 34.1 % Red Cell Distribution Width 14.8 % Platelet Count 312 TH/MM3 Mean Platelet Volume 7.2 FL Neutrophils (%) (Auto) 78.9 % Lymphocytes (%) (Auto) 10.8 % Monocytes (%) (Auto) 8.8 % Eosinophils (%) (Auto) 0.9 % Basophils (%) (Auto) 0.6 % Neutrophils # (Auto) 10.6 TH/MM3 Lymphocytes # (Auto) 1.4 TH/MM3 Monocytes # (Auto) 1.2 TH/MM3 Eosinophils # (Auto) 0.1 TH/MM3 Basophils # (Auto) 0.1 TH/MM3 CBC Comment DIFF FINAL Differential Comment Blood Urea Nitrogen 23 MG/DL Creatinine 1.11 MG/DL Random Glucose 103 MG/DL Calcium Level 9.5 MG/DL Magnesium Level 1.8 MG/DL Sodium Level 133 MEQ/L Potassium Level 3.2 MEQ/L Chloride Level 96 MEQ/L Carbon Dioxide Level 22.4 MEQ/L Anion Gap 15 MEQ/L Estimat Glomerular Filtration Rate 47 ML/MIN MDM Medical Decision Making Medical Screen Exam Complete: Yes Emergency Medical Condition: Yes Medical Record Reviewed: Yes Interpretation(s) CBC & BMP Diagram 04/12/18 20:57 Calcium Level 9.5, Magnesium Level 1.8 Last Impressions Pelvis X-Ray 04/12/181955 Signed Impressions: CONCLUSION: There are fractures of the right superior and inferior pubic rami. Head CT 04/12/181955 Signed Impressions: CONCLUSION: 1. No acute hemorrhage, mass or evidence of acute infarction. 2. Focal area of encephalomalacia involving the right occipital lobe at site o f prior hemorrhage. 3. Atrophy and chronic small vessel ischemic change. Chest X-Ray 04/12/181955 Signed Impressions: CONCLUSION: No acute cardiopulmonary disease. Femur X-Ray 04/12/18 0000 Signed Impressions: CONCLUSION: There are fractures of the right superior and inferior pubic rami. Femur X-Ray 04/12/18 0000 Signed Impressions: CONCLUSION: 1. No acute fracture or malalignment. 2. Status post left knee arthroplasty. Differential Diagnosis Fracture versus bruise versus contusion versus inability to ambulate versus dementia versus head injury versus CVA Narrative Course 83-year-old female that presents to the ED for evaluation of fall. Patient was properly examined and was found to have signs and symptoms concerning for bony injuries. X-rays were ordered. Imaging was ordered. Patient medications. Labs and imaging showed pelvic fractures. CTs still pending at the writing of this note. Case signed out to my attending pending disposition and likely admission for pain control. Matias Mai Apr 12, 2018 20:29
--- NOTE | 2018-04-12 21:11 | RADRPT ---
EXAM DATE: 04/12/2018 8:50 PM EDT AGE/SEX: 83 years / Female INDICATIONS: Shortness of breath post fall. CLINICAL DATA: This is the patient's initial encounter. Patient reports that signs and symptoms have been present for 1 day and indicates a pain score of 10/10. MEDICAL/SURGICAL HISTORY: Hypertension. Diverticulitis. Colostomy. COMPARISON: No prior [place] exams available for comparison. FINDINGS: A single AP view of the chest demonstrates the lungs to be symmetrically aerated without evidence of mass, infiltrate or effusion. The cardiomediastinal contours are unremarkable. Osseous structures a re intact with mild scoliosis. The ribs appear unremarkable. There is no pneumothorax. Overlying elec trocardiogram leads are present. There are mild atherosclerotic changes in the aorta. CONCLUSION: No acute cardiopulmonary disease. Electronically signed by: Peyman Vincent MD 04/12/2018 9:10 PM EDT
--- NOTE | 2018-04-12 21:13 | RADRPT ---
EXAM DATE: 04/12/2018 8:53 PM EDT AGE/SEX: 83 years / Female INDICATIONS: Pelvic pain post fall. CLINICAL DATA: This is the patient's initial encounter. Patient reports that signs and symptoms have been present for 1 day and indicates a pain score of 10/10. MEDICAL/SURGICAL HISTORY: None. None. COMPARISON: [facility] [place], FEMUR RIGHT (1 VW), 04/12/2018. . FINDINGS: Mildly rotated AP view of the pelvis demonstrate fractures of the superior and inferior pubic rami on the right. No other pelvic bone fracture is identified. Proximal femora appear intact. There is scol iosis of the lumbar spine. Bowel staple lines are present in the pelvis. No soft tissue abnormality i s identified. CONCLUSION: There are fractures of the right superior and inferior pubic rami. Electronically signed by: Kahlil Melendez MD 04/12/2018 9:11 PM EDT
[2018-04-12 21:14] LABS: AUTOMATED NEUTROPHIL # 10.6 TH/MM3 (1.8-7.7); BASOPHIL # 0.1 TH/MM3 (0-0.2); BASOPHIL % 0.6 % (0.0-2.0); EOSINOPHIL # 0.1 TH/MM3 (0-0.4); EOSINOPHIL % 0.9 % (0.0-4.0); HEMATOCRIT 38.5 % (35.0-46.0); HEMOGLOBIN 13.1 GM/DL (11.6-15.3); LYMPH % 10.8 % (9.0-44.0); LYMPHOCYTE # 1.4 TH/MM3 (1.0-4.8); MEAN CELL VOLUME 86.7 FL (80.0-100.0); MEAN CORPUSCULAR HEMOGLOBIN 29.6 PG (27.0-34.0); MEAN CORPUSCULAR HGB CONC 34.1 % (32.0-36.0); MEAN PLATELET VOLUME 7.2 FL (7.0-11.0); MONO % 8.8 % (0.0-8.0); MONOCYTE # 1.2 TH/MM3 (0-0.9); NEUT % 78.9 % (16.0-70.0); PLATELET COUNT 312 TH/MM3 (150-450); RED BLOOD COUNT 4.44 MIL/MM3 (4.00-5.30); RED CELL DISTRIBUTION WIDTH 14.8 % (11.6-17.2); WHITE BLOOD COUNT 13.4 TH/MM3 (4.0-11.0)
--- NOTE | 2018-04-12 21:14 | RADRPT ---
EXAM DATE: 04/12/2018 8:52 PM EDT AGE/SEX: 83 years / Female INDICATIONS: Right femur pain post fall. CLINICAL DATA: This is the patient's initial encounter. Patient reports that signs and symptoms have been present for 1 day and indicates a pain score of 10/10. MEDICAL/SURGICAL HISTORY: None. None. COMPARISON: No prior [place] exams available for comparison. FINDINGS: 2 AP views of the right femur demonstrate fractures of the right superior and inferior pubic rami. Th e right femur is intact. There is hardware at the knee joint representing total knee arthroplasty. No acute soft tissue abnormality is seen. Right hip joint demonstrates no acute finding. CONCLUSION: There are fractures of the right superior and inferior pubic rami. Electronically signed by: Kahlil Melendez MD 04/12/2018 9:12 PM EDT
--- NOTE | 2018-04-12 21:16 | RADRPT ---
EXAM DATE: 04/12/2018 8:51 PM EDT AGE/SEX: 83 years / Female INDICATIONS: Left femur pain post fall. CLINICAL DATA: This is the patient's initial encounter. Patient reports that signs and symptoms have been present for 1 day and indicates a pain score of 10/10. MEDICAL/SURGICAL HISTORY: None. None. COMPARISON: No prior [place] exams available for comparison. FINDINGS: Bony structures are intact and in normal alignment. Osseous density is normal. Soft tissues are unre markable. No radiopaque foreign bodies seen. The patient is status post left knee arthroplasty. CONCLUSION: 1. No acute fracture or malalignment. 2. Status post left knee arthroplasty. Electronically signed by: Peyman Vincent MD 04/12/2018 9:14 PM EDT
[2018-04-12 21:41] LABS: BICARBONATE 22.4 MEQ/L (21.0-32.0); CALCIUM 9.5 MG/DL (8.5-10.1); CREATININE 1.11 MG/DL (0.50-1.00); MAGNESIUM 1.8 MG/DL (1.5-2.5)
--- NOTE | 2018-04-12 22:01 | RADRPT ---
EXAM DATE: 04/12/2018 9:57 PM EDT AGE/SEX: 83 years / Female INDICATIONS: Fell while leaning forward. History of prior intracranial hemorrhage in the right occip ital lobe in 2014. CLINICAL DATA: This is the patient's initial encounter. Patient reports that signs and symptoms have been present for 1 day and indicates a pain score of 5/10. MEDICAL/SURGICAL HISTORY: Cerebrovascular disease. Hypertension. Colostomy. Hysterectomy. RADIATION DOSE: 56.00 CTDI (mGy) ;Tabletop exam COMPARISON: [facility] – [place] BRAIN W/O CONTRAST, 05/12/2015. . TECHNIQUE: CT of the head without contrast. Using automated exposure control and adjustment of the mA and/or kV according to patient size, radiation dose was kept as low as reasonably achievable to ob tain optimal diagnostic quality images. FINDINGS: Cerebrum: The ventricles are normal for age with diffuse moderate atrophic change. Chronic small ves antoni ischemic changes are present as well. No evidence of midline shift, mass lesion, hemorrhage or ac sac and [place] infarction. There is a focal area of encephalomalacia involving the right occipital lobe at site of prior hemorrhage. No extraaxial fluid collections are seen. Posterior Fossa: The cerebellum and brainstem are intact. The 4th ventricle is midline. The cerebe llopontine angle is unremarkable. Extracranial: The visualized portion of the orbits is intact. Skull: The calvaria is intact. No evidence of skull fracture. CONCLUSION: 1. No acute hemorrhage, mass or evidence of acute infarction. 2. Focal area of encephalomalacia involving the right occipital lobe at site of prior hemorrhage. 3. Atrophy and chronic small vessel ischemic change. Electronically signed by: Peyman Vincent MD 04/12/2018 10:00 PM EDT
--- NOTE | 2018-04-12 22:17 | RADRPT ---
EXAM DATE: 04/12/2018 10:04 PM EDT AGE/SEX: 83 years / Female INDICATIONS: Fell while leaning forward. CLINICAL DATA: This is the patient's initial encounter. Patient reports that signs and symptoms have been present for 1 day and indicates a pain score of 5/10. MEDICAL/SURGICAL HISTORY: Cerebrovascular disease. Hypertension. Colostomy. Hysterectomy. RADIATION DOSE: 9.50 CTDI (mGy) COMPARISON: No prior [facility] exams available for comparison. TECHNIQUE: Contiguous axial images were obtained using helical multirow detector technique. The vol umetric data was post-processed with multiplanar reconstruction in oblique axial, sagittal, and coron al planes. Using automated exposure control and adjustment of the mA and/or kV according to patient s ize, radiation dose was kept as low as reasonably achievable to obtain optimal diagnostic quality holger ges. FINDINGS: No fracture or dislocation is identified. There is a minimal anterolisthesis of C7 on T1 but otherwis e alignment is within normal limits. The atlantoaxial relationship is within normal limits. No prever tebral soft tissue swelling is present. There is decreased disc height at C2-C3 and extending through C6-C7. These levels demonstrate endplate sclerosis and osteophytes. No significant spinal canal sten osis is appreciated. The visualized surrounding structures and upper lung zones demonstrate no acute finding. CONCLUSION: 1. No acute cervical spine abnormality is identified. 2. There is significant degenerative disc disease at C2-C3 and extending through C6-C7. There is min imal anterolisthesis of C7 on T1. Electronically signed by: Kahlil Melendez MD 04/12/2018 10:16 PM EDT
--- NOTE | 2018-04-12 22:20 | RADRPT ---
EXAM DATE: 04/12/2018 10:13 PM EDT AGE/SEX: 83 years / Female INDICATIONS: Pelvic pain after trauma with fractures of the right superior and inferior pubic rami s een on plain film. CLINICAL DATA: This is the patient's initial encounter. Patient reports that signs and symptoms have been present for 1 day and indicates a pain score of 10/10. MEDICAL/SURGICAL HISTORY: Hypertension. . colostomy. RADIATION DOSE: 19.80 CTDI (mGy) [place] [facility] [place]. . TECHNIQUE: Multiple contiguous axial images were obtained through the pelvis without contrast. Imag es were obtained using multiple row detector helical technique. . Using automated exposure control an d adjustment of the mA and/or kV according to patient size, radiation dose was kept as low as reasona brad achievable to obtain optimal diagnostic quality images. FINDINGS: Bowel/Mesentery: The bowel loops are grossly unremarkable. The sigmoid colon has a normal configura tion. There is hemorrhage along the right inferior pelvic sidewall. Bladder: Contours are smooth. Retroperitoneum: No evidence of deep pelvic adenopathy. Reproductive Organs: No abnormal masses or calcifications seen. Inguinal: The inguinal region is unremarkable without evidence of adenopathy. Bony Structures: Fractures of the right superior and inferior pubic rami are again visualized. The s ymphysis pubis remains intact. The acetabulum and visualized portions of the femurs are intact as wel l. There is subtle nondisplaced fractures involving the anterior right side of the sacrum. There is a subtle cortical break and mild buckling. The sacroiliac joints are symmetric in appearance. There is a mild scoliosis of the lower lumbar spine. There is diffuse osteopenia. CONCLUSION: 1. Fractures of the right superior and inferior pubic rami are again visualized. 2. Subtle fractures involving the anterior right sacrum. 3. Hemorrhage along the right lower pelvic sidewall. Electronically signed by: Peyman Vincent MD 04/12/2018 10:19 PM EDT
--- NOTE | 2018-04-12 22:29 | RADRPT ---
EXAM DATE: 04/12/2018 10:22 PM EDT AGE/SEX: 83 years / Female INDICATIONS: Fell while leaning forward. CLINICAL DATA: This is the patient's initial encounter. Patient reports that signs and symptoms have been present for 1 day and indicates a pain score of 5/10. MEDICAL/SURGICAL HISTORY: Cerebrovascular disease. Hypertension. Colostomy. Hemorrhoidectomy. RADIATION DOSE: 27.35 CTDI (mGy) ; Combined studies [place] [facility] [place] 04/04/2018. . TECHNIQUE: Contiguous axial images were acquired using a multirow detector CT scanner without contra st. Multiplanar reconstruction in the sagittal and coronal planes was performed. Using automated exp osure control and adjustment of the mA and/or kV according to patient size, radiation dose was kept a s low as reasonably achievable to obtain optimal diagnostic quality images. FINDINGS: The sagittal reconstructions demonstrate a mild compression fracture deformity of the T8 vertebral b ant with invagination of the superior endplate and subtle fracture lines. There is no retropulsion. T he other thoracic vertebral bodies are intact. There is a mild to moderate scoliosis. There is diffus e osteopenia. Mild degenerative changes are present greatest in the lower thoracic spine. The axial images demonstrate the subtle fracture deformity of the T8 vertebral body. The posterior el ements are intact. There is mild soft tissue swelling the paravertebral soft tissues. Visualized port ions of the ribs are intact. The scoliosis is again visualized. CONCLUSION: 1. Mild compression fracture deformity of the T8 vertebral body with invagination of the superior en dplate and surrounding edema. There is no retropulsion. 2. The other vertebral bodies are intact. 3. Osteopenia, scoliosis and degenerative change. Electronically signed by: Peyman Vincent MD 04/12/2018 10:28 PM EDT
--- NOTE | 2018-04-12 22:47 | RADRPT ---
EXAM DATE: 04/12/2018 10:29 PM EDT AGE/SEX: 83 years / Female INDICATIONS: Fell while leaning forward. CLINICAL DATA: This is the patient's initial encounter. Patient reports that signs and symptoms have been present for 1 day and indicates a pain score of 5/10. MEDICAL/SURGICAL HISTORY: Cerebrovascular disease. Hypertension. Colostomy. Hysterectomy. RADIATION DOSE: 27.35 CTDI (mGy) ; Combined studies COMPARISON: No prior [facility] exams available for comparison. TECHNIQUE: Contiguous axial images were acquired with a multirow detector CT scanner without contras t. Multiplanar reconstructions in the sagittal and coronal plane were also performed. Using automate d exposure control and adjustment of the mA and/or kV according to patient size, radiation dose was k ept as low as reasonably achievable to obtain optimal diagnostic quality images. FINDINGS: Vertebrae: Normal vertebral body height. Alignment: Normal. No subluxation. The axial images again demonstrate the subtle fractures involving the right anterior sacrum. The sacr oiliac joints remain intact and congruent. There is a moderate scoliosis of the thoracic spine with d iffuse osteopenia. The vertebral bodies and posterior elements are intact. The paravertebral soft tis sues are within normal limits. There is a 6 mm right renal calculus as well as a large cyst extending off the lower pole of the right kidney. Degenerative disc changes are present with disc space narrow ing and hypertrophic changes. Alignment is anatomic. CONCLUSION: 1. The lumbar vertebral bodies are intact with no acute fracture or malalignment. 2. The known right anterior sacral fractures are again visualized. 3. Moderate scoliosis, osteopenia and degenerative disc change. Electronically signed by: Peyman Vincent MD 04/12/2018 10:46 PM EDT
[2018-04-12 23:31] VITALS: BP 155/76; PULSE 121; RESP 16; TEMP 99.6; O2SAT 95
--- NOTE | 2018-04-12 23:43 | PD ---
Physical Exam Date Seen by Provider: Apr 12, 2018 Time Seen by Provider: 23:43 Narrative GENERAL: Well-developed elderly female in no acute distress or respiratory distress resting supine without movement but grimaces in severe pain with movement of the lower extremities. SKIN: Warm and dry. HEAD: Normocephalic. EYES: No scleral icterus. No injection or drainage. NECK: Supple, trachea midline. No JVD or lymphadenopathy. CARDIOVASCULAR: Regular rate and rhythm without murmurs, gallops, or rubs. RESPIRATORY: Breath sounds equal bilaterally. No accessory muscle use. GASTROINTESTINAL: Abdomen soft, non-tender, nondistended. MUSCULOSKELETAL: No cyanosis, or edema. Radial and dorsalis pedis pulses 2+ to palpation. Patient has spontaneous movement of bilateral lower extremities but grimaces in pain with flexion extension specifically of the right lower extremity. BACK: Nontender without obvious deformity except for localized mid to lower back tenderness to palpation. No CVA tenderness. Data Data Last Documented VS Vital Signs Date Time Temp Pulse Resp B/P (MAP) Pulse Ox O2 Delivery O2 Flow Rate FiO2 04/12/18 23:31 99.6 121 16 155/76 (102) 95 04/12/18 20:01 Room Air Orders Orders Complete Blood Count With Diff (04/12/18 19:56) Basic Metabolic Panel (Bmp) (04/12/18 19:56) Urinalysis - C+S If Indicated (04/12/18 19:56) Magnesium (Mg) (04/12/18 19:56) Chest, Single Ap (04/12/18 19:56) Ct Brain W/O Iv Contrast(Rout) (04/12/18 19:56) Iv Access Insert/Monitor (04/12/18 19:56) Ecg Monitoring (04/12/18 19:56) Oximetry (04/12/18 19:56) Ct Lumb Spine W/O Contrast (04/12/18 ) Ct Cerv Spine W/O Contrast (04/12/18 ) Ct Thor Spine W/O Contrast (04/12/18 ) Morphine Inj (Morphine Inj) (04/12/18 20:00) Metoclopramide Inj (Reglan Inj) (04/12/18 20:00) Pelvis, Ap Only (Routine) (04/12/18 19:56) Femur, One View (04/12/18 ) Femur, One View (04/12/18 ) Ct Pelvis W/O Iv Contrast (04/12/18 ) Urinary Catheter Insert/Apply (04/12/18 21:41) Admit Order (Ed Use Only) (04/12/18 ) Experimental Preflight Mechanic / Telemetry [id number].[id number] (04/12/18 23:49) Activity Bed Rest (04/12/18 23:49) Notify Dr: Other (04/12/18 23:49) Labs Laboratory Tests Test 04/12/18 20:57 White Blood Count 13.4 TH/MM3 Red Blood Count 4.44 MIL/MM3 Hemoglobin 13.1 GM/DL Hematocrit 38.5 % Mean Corpuscular Volume 86.7 FL Mean Corpuscular Hemoglobin 29.6 PG Mean Corpuscular Hemoglobin Concent 34.1 % Red Cell Distribution Width 14.8 % Platelet Count 312 TH/MM3 Mean Platelet Volume 7.2 FL Neutrophils (%) (Auto) 78.9 % Lymphocytes (%) (Auto) 10.8 % Monocytes (%) (Auto) 8.8 % Eosinophils (%) (Auto) 0.9 % Basophils (%) (Auto) 0.6 % Neutrophils # (Auto) 10.6 TH/MM3 Lymphocytes # (Auto) 1.4 TH/MM3 Monocytes # (Auto) 1.2 TH/MM3 Eosinophils # (Auto) 0.1 TH/MM3 Basophils # (Auto) 0.1 TH/MM3 CBC Comment DIFF FINAL Differential Comment Blood Urea Nitrogen 23 MG/DL Creatinine 1.11 MG/DL Random Glucose 103 MG/DL Calcium Level 9.5 MG/DL Magnesium Level 1.8 MG/DL Sodium Level 133 MEQ/L Potassium Level 3.2 MEQ/L Chloride Level 96 MEQ/L Carbon Dioxide Level 22.4 MEQ/L Anion Gap 15 MEQ/L Estimat Glomerular Filtration Rate 47 ML/MIN [facility] Medical Record Reviewed: Yes Supervised Visit with DM: Yes Interpretation(s) Last Impressions Pelvis X-Ray 04/12/181955 Signed Impressions: CONCLUSION: There are fractures of the right superior and inferior pubic rami. Head CT 04/12/181955 Signed Impressions: CONCLUSION: 1. No acute hemorrhage, mass or evidence of acute infarction. 2. Focal area of encephalomalacia involving the right occipital lobe at site o f prior hemorrhage. 3. Atrophy and chronic small vessel ischemic change. Chest X-Ray 04/12/181955 Signed Impressions: CONCLUSION: No acute cardiopulmonary disease. Thoracic Spine CT 04/12/18 0000 Signed Impressions: CONCLUSION: 1. Mild compression fracture deformity of the T8 vertebral body with invaginat ion of the superior endplate and surrounding edema. There is no retropulsion. 2. The other vertebral bodies are intact. 3. Osteopenia, scoliosis and degenerative change. Pelvis CT 04/12/18 0000 Signed Impressions: CONCLUSION: 1. Fractures of the right superior and inferior pubic rami are again visualiz ed. 2. Subtle fractures involving the anterior right sacrum. 3. Hemorrhage along the right lower pelvic sidewall. Lumbar Spine CT 04/12/18 0000 Signed Impressions: CONCLUSION: 1. The lumbar vertebral bodies are intact with no acute fracture or malalignme nt. 2. The known right anterior sacral fractures are again visualized. 3. Moderate scoliosis, osteopenia and degenerative disc change. Femur X-Ray 04/12/18 0000 Signed Impressions: CONCLUSION: There are fractures of the right superior and inferior pubic rami. Femur X-Ray 04/12/18 0000 Signed Impressions: CONCLUSION: 1. No acute fracture or malalignment. 2. Status post left knee arthroplasty. Cervical Spine CT 04/12/18 0000 Signed Impressions: CONCLUSION: 1. No acute cervical spine abnormality is identified. 2. There is significant degenerative disc disease at C2-C3 and extending throu gh C6-C7. There is minimal anterolisthesis of C7 on T1. CBC & BMP Diagram 04/12/18 20:57 Calcium Level 9.5, Magnesium Level 1.8 Vital Signs Date Time Temp Pulse Resp B/P (MAP) Pulse Ox O2 Delivery O2 Flow Rate FiO2 04/12/18 23:31 99.6 121 16 155/76 (102) 95 04/12/18 20:01 98 20 100 Room Air 04/12/18 19:57 99 20 100 Room Air 04/12/18 19:57 96 18 126/80 (95) 100 Room Air 04/12/18 19:40 98.6 99 18 126/80 (95) 98 Differential Diagnosis Fall, compression fracture, pelvic fracture, hip fracture, femur fracture, contusion Narrative Course 83-year-old female presents to the emergency department by EMS transport from home after non-syncopal fall while attempting to get out of her bed. Patient recently left jail because patient was not able to be house properly at the jail due to her dementia the staff could not control her and she was at risk for flight or injury therefore family picked her up from the rehab facility to home today. Patient had returned home at 3 PM. Patient had been laying down to take a nap and then apparently was attempting to get out of bed without assistance lost her balance and fell. Fall was not witnessed but daughter states she was right outside the bedroom door when she heard the thump and patient screaming and ran directly into the room and less than a second of time. Patient was not unconscious was in a partial position and refused to move her leg secondary to pain with attempted extension of the right hip. Because they could not move the patient on their own the daughter decided to have the patient transferred to the hospital by EMS transport. Patient has history of dementia. Patient was recently hospitalized for dehydration and back pain status post fall with evidence of minor subacute versus chronic T8 compression fracture. Patient here is identified to be in marked excruciating pain will not allow any movement of the body secondary to her pain but on direct inspection no obvious deformity of the lower extremities patient prefers to hold extremities and hip flexion knee flexion dorsalis pedis pulses are 2+ without shortening or external rotation identified. Pelvis is tender to palpation abdomen is soft nontender no guarding or rebound heart sounds are regular without murmur or gallop and lung sounds are clear to auscultation palpation of the soft tissue/scalp no soft tissue swelling or hematoma abrasion or laceration neck is nontender to palpation. In view of patient's marked pain , dementia and recent fall with T8 compression fracture; multiple imaging studies will be obtained including CT brain noncontrast CT cervical spine noncontrast chest x-ray thoracic spine CT noncontrast lumbar spine CT noncontrast and reassess at that time. Imaging studies ordered by prior mid- level provider included pelvis CT without contrast. Lab values resulted imaging studies resulted patient is identified to have mild compression fracture of T8 compared to minor compression fracture of T8 1 week ago also identified to have right superior ramus and inferior ramus fracture as well as by CT appears to have a mildly displaced anterior sacral fracture. By CT is noted to have small area of hemorrhage at the site. Patient is not identified to be on any blood thinning agents at these imaging studies has been discussed with the on-call trauma surgeon. Due to the fact that the patient is on a blood thinning agent patient can be admitted to medicine service with orthopedic consult per trauma surgeon. Patient identified to have increased heart rate reassessed for pain and additional pain medication administered reports pain is controlled but heart rate remains elevated in view of noncontrast study being performed and patient with known blood in the pelvic wall will obtain CT with contrast to make sure there is no expansion of the bleed prior to admitting patient to the floor patient has already been admitted to medicine service with recommendation for also consult in the morning. CT abdomen pelvis with IV contrast performed due to transient increase in heart rate therefore imaging study with contrast performed and does show some blood in the soft tissue but no blood in the pelvis or abdomen or retroperitoneal no free fluid. Physician Communication Physician Communication discussed with Dr Lowery; discussed with Dr Bloom Diagnosis Primary Impression: Pelvic fracture Additional Impression: Compression fracture of thoracic vertebra Qualified Codes: S22.000A - Wedge compression fracture of unspecified thoracic vertebra, initial encounter for closed fracture Admitting Information Admitting Physician Requests: Admit Hali Junior MD Apr 12, 2018 23:43
[2018-04-13] VITALS (8 sets, daily range): BP systolic 127–152; BP diastolic 60–77; PULSE 87–110; RESP 18–20; TEMP 97.6–98.6; O2SAT 94–97
[2018-04-13] MEDS ORDERED: SODIUM CHLORID 0.9% 500 ML INJ 500 ML IV ONE ×2
[2018-04-13] MEDS ORDERED: MORPHINE SULFATE 2 MG/ML SYRINGE IV PUSH ONE
[2018-04-13] MEDS ORDERED: MORPHINE SULFATE 4 MG/ML INJ IV PUSH ONE ×2 (00:30→01:15)
[2018-04-13 00:50] LABS: BILIRUBIN, URINE NEG (NEG); BLOOD, URINE TRACE (NEG); GLUCOSE,URINE NEG (NEG); HYALINE CAST, URINE 5 /lpf (RARE); KETONE, URINE 10 mg/dL (NEG); MUCUS URINE FEW /lpf (OCC); NITRITE,URINE NEG (NEG); PH, URINE 5.5 (5.0-8.5); TRANSITIONAL EPI CELLS, URINE <1 /hpf; URINE COLOR YELLOW (YELLW/STRAW); URINE LEUKOCYTE ESTERASE NEG (NEG)
[2018-04-13 00:50] LABS: HEMATOCRIT 38.9 % (35.0-46.0); HEMOGLOBIN 13.5 GM/DL (11.6-15.3); MEAN CORPUSCULAR HEMOGLOBIN 29.8 PG (27.0-34.0); MEAN CORPUSCULAR HGB CONC 34.6 % (32.0-36.0); MEAN PLATELET VOLUME 8.7 FL (7.0-11.0); PLATELET COUNT 384 TH/MM3 (150-450); RED BLOOD COUNT 4.53 MIL/MM3 (4.00-5.30); WHITE BLOOD COUNT 16.7 TH/MM3 (4.0-11.0)
[2018-04-13 00:59] LABS: PROTHROMBIN TIME - PATIENT 10.6 SEC (9.8-11.6)
[2018-04-13] MEDS ORDERED: MORPHINE SULFATE 4 MG/ML INJ IV PUSH PRN (01:15)
[2018-04-13] MEDS ORDERED: SENNOSIDES 8.6 MG TAB PO PRN (01:15)
[2018-04-13] MEDS ORDERED: NALOXONE HCL 0.4 MG/ML AMP IV PUSH PRN (01:15)
[2018-04-13] MEDS ORDERED: SODIUM CHLORIDE 0.9% FLUSH 10 ML FLUSH IV FLUSH PRN (01:15)
[2018-04-13] MEDS ORDERED: POTASSIUM CHLORIDE 20 MEQ CONTROLLED RELEASE TAB PO ONE (01:15)
[2018-04-13] MEDS ORDERED: BISACODYL 10 MG SUPP RECTAL PRN (01:15)
[2018-04-13] MEDS ORDERED: ACETAMINOPHEN 325 MG TAB PO PRN (01:15)
[2018-04-13] MEDS ORDERED: LACTULOSE SYRUP 20 GM/30 ML CUP PO PRN (01:15)
[2018-04-13] MEDS ORDERED: MAGNESIUM HYDROXIDE SUSP 30 ML CUP PO PRN (01:15)
[2018-04-13] MEDS ORDERED: ONDANSETRON ODT 4 MG TAB PO PRN (01:30)
[2018-04-13] MEDS ORDERED: IOHEXOL 350 MG/ML 10 ML VIAL (for RAD DIAG) IVCONTRAST ONE (01:35)
--- NOTE | 2018-04-13 02:08 | RADRPT ---
EXAM DATE: 04/13/2018 1:25 AM EDT AGE/SEX: 83 years / Female INDICATIONS: Fall. Evaluate for retroperitoneal hemorrhage. CLINICAL DATA: This is the patient's initial encounter. Patient reports that signs and symptoms have been present for 1 day and indicates a pain score of 10/10. MEDICAL/SURGICAL HISTORY: Cardiovascular disease. Cerebrovascular disease. Diverticulitis. H TN Colon resection. Hysterectomy. Total knee replacement, right. ORAL CONTRAST: No oral contrast ingested. RADIATION DOSE: 6,72 CTDI (mGy) COMPARISON: [facility] – [place] ABDOMEN & PELVIS W CONTRAST, 04/04/2018. . TECHNIQUE: Multiple contiguous axial images were obtained through the abdomen and pelvis following b olus infusion of 80 ml Omnipaque 350 (iohexol) nonionic water-soluble contrast as a single exam dos e. No oral contrast ingested. Using automated exposure control and adjustment of the mA and/or kV ac cording to patient size, the radiation dose was kept as low as reasonably achievable to obtain optima l diagnostic quality images. FINDINGS: Lower Lungs: There is linear density seen in the posterior lower lobes bilaterally related to atelect asis or scarring. Liver: The liver has a homogeneous density without space-occupying lesion. There is no dilation of th e biliary tree. Spleen: Homogeneous density without enlargement. Pancreas: Unremarkable without mass or calcification. Kidneys: There is a small area of calcification seen in the superior posterior medial right kidney r elated to either a cortical calcification or a peripheral nonobstructing stone. There is a 7.5 cm cys t seen at the inferior right kidney. There is a 1 cm cyst at the anterior lateral left inferior kidne y. No hydronephrosis is seen. Adrenal Glands: Unremarkable. Aorta: Scattered atherosclerotic calcifications are present. No aneurysm is seen. Bowel/Mesentery: There appears to be a mild hiatal hernia. There appears to be a bowel anastomosis s uture at the distal sigmoid colon region. Significantly thickened or dilated bowel is not seen. Abdominal Wall: There is a hernia in the midline at the upper abdomen with defect measuring at least 4.8 cm containing only mesenteric fat. Retroperitoneum: No evidence of adenopathy in the retrocrural, para-aortic, or deep pelvic regions. Bladder: Contours are smooth. Reproductive Organs: No abnormal masses or calcifications seen. Inguinal: The inguinal region is unremarkable without evidence of adenopathy. Bony Structures: There is fracturing of the superior and inferior right pubic rami. There is some lee rrounding hemorrhage in the musculature. There is also some stranding at the undersurface of the ante rior abdominal wall inferiorly on the right likely from the recent trauma. There is degenerative singh ge in the lumbar spine. There is a prominent levoscoliosis of the thoracolumbar region. CONCLUSION: 1. New fractures of the superior and inferior right pubic rami with hemorrhage in the surrounding mu sculature and along the undersurface of the inferior right anterior abdominal wall. 2. Linear scarring or atelectasis at the lung bases. 3. Bilateral renal cysts. 4. Small calcification in the posterior medial right kidney related to either cortical calcification or a peripheral nonobstructing stone. 5. Mild hiatal hernia. 6. Midline hernia containing mesenteric fat. Electronically signed by: Kahlil White MD 04/13/2018 2:07 AM EDT
[2018-04-13] MEDS: SODIUM CHLOR 0.9% 1000 ML INJ 1,000 ML IV SCH ×2 (02:58→15:25)
[2018-04-13] MEDS ORDERED: LACTATED RINGER'S 1000 ML IV PRN (03:45)
[2018-04-13] MEDS ORDERED: CHLORHEXIDINE GLUCONATE 2 % 1 PACK (2 CLOTHS) TOPICAL PRN (03:45)
[2018-04-13] MEDS ORDERED: SODIUM CHLORID 0.9% 500 ML IV PRN (03:45)
[2018-04-13] MEDS ORDERED: POVIDONE IODINE 5% (ANTISEPSIS KIT) 4 APPLICATIONS EACH NARE PRN (03:45)
[2018-04-13 07:18] LABS: BICARBONATE 26.5 MEQ/L (21.0-32.0); CALCIUM 8.2 MG/DL (8.5-10.1); CREATININE 0.87 MG/DL (0.50-1.00)
[2018-04-13] MEDS ORDERED: POTASSIUM CHLORIDE 25 MEQ EFFERVESCENT TAB PO ONE (08:30)
[2018-04-13] MEDS: BRIMONIDINE TARTRATE 0.15% OPHT SOLN 5 ML BTL EACH EYE SCH ×4 (09:00→18:00)
[2018-04-13] MEDS: SODIUM CHLORIDE 0.9% FLUSH 10 ML FLUSH IV FLUSH SCH ×2 (09:00→21:00)
[2018-04-13] MEDS: DOCUSATE SODIUM 50 MG/SENNA 8.6 MG TAB PO SCH ×2 (09:00→22:05)
[2018-04-13] MEDS: HYDROCHLOROTHIAZIDE 12.5 MG CAP PO SCH (09:00)
--- NOTE | 2018-04-13 12:14 | HHI.HP ---
[facility] Annabella Curiel MD Admission Diagnosis Pelvic frature; t8 compression fracture; dementia Diagnoses: Chief Complaint: S/P Fall, Pain RLE Travel History International Travel<30 Days: No Contact w/Intl Traveler <30 Da: No Traveled to Known Affected Are: No History of Present Illness Patient is an 83-year-old female with primary medical history of HTN, HLD, diverticulitis who came into the hospital status post fall. He was admitted to the hospital secondary to back pain and was discharged to rehab [facility]. [facility] they have recommended that patient should be in the lock unit she always wanted to go home and get out of the unit. She was discharged in [facility] and went home with family. At home, patient had a fall just minutes after daughter and father left her in her room. Patient seen and examined today. Daughter at the bedside. Patient states she is doing well and there is nothing wrong with her and she wanted to go home. Poor historian. All histories taken from daughter. Denies pain and discomfort. Denies SOB/ dyspnea. Denies chest pain, palpitations, headaches, dizziness. Denies fevers, chills, n/v/d. Denies dysuria. Review of Systems ROS Limitations: Poor Historian Except as stated in HPI: all other systems reviewed are Neg Past Family Social History Past Medical History Hx from daughter Diverticulitis, hyperlipidemia, glaucoma, intracranial hemorrhage, HTN Past Surgical History Hx from daughter Hysterectomy, ruptured diverticulum with repair, right knee replacement, left knee surgery Reported Medications Reported Meds & Active Scripts Active Potassium Chloride ER (Potassium Chloride) 20 Meq Tab 20 Meq PO DAILY Hydrocodone-Acetamin 5-325 mg (Hydrocodone/Acetaminophen) 5 Mg-325 Mg Tablet 1 Tab PO Q6H PRN Reported Latanoprost Opth Drops (Latanoprost) 0.005% Drops 1 Drop EACH EYE HS Refrigerate until opened. Hydrochlorothiazide 12.5 Mg Cap 12.5 Mg PO DAILY Brimonidine Opth Drops (Brimonidine Tartrate) 0.15% Soln 1 Drop EACH EYE TID Atorvastatin (Atorvastatin Calcium) 20 Mg Tab 20 Mg PO HS Allergies: Coded Allergies: No Known Allergies (Verified , 05/12/15) Active Ordered Medications Current Medications Medications (Trade) Dose Ordered Sig/Clovis Route Start Time Stop Time Status Last Admin (Morphine Inj) 2 mg Q3H PRN IV PUSH 04/13/18 01:15 Sodium Chloride 1,000 ml @ 70 mls/hr [id number] IV 04/13/18 01:07 04/13/18 02:58 (NS Flush) 2 ml UNSCH PRN IV FLUSH 04/13/18 01:15 (NS Flush) 2 ml BID IV FLUSH 04/13/18 09:00 (Tylenol) 650 mg Q4H PRN PO 04/13/18 01:15 (Zofran Odt) 4 mg Q6H PRN PO 04/13/18 01:30 (Narcan Inj) 0.4 mg UNSCH PRN IV PUSH 04/13/18 01:15 (Marialuisa-Colace) 1 tab BID PO 04/13/18 09:00 (Milk Of Magnesia Liq) 30 ml Q12H PRN PO 04/13/18 01:15 (Senokot) 17.2 mg Q12H PRN PO 04/13/18 01:15 (Dulcolax Supp) 10 mg DAILY PRN RECTAL 04/13/18 01:15 (Lactulose Liq) 30 ml DAILY PRN PO 04/13/18 01:15 (Lipitor) 20 mg HS PO 04/13/18 21:00 (Alphagan P 0.15% Opth Soln) 1 drop TID EACH EYE 04/13/18 09:00 (Microzide) 12.5 mg DAILY PO 04/13/18 09:00 (Xalatan 0.005% Opth Soln) 1 drop HS EACH EYE 04/13/18 21:00 Lactated Ringer's 1,000 ml @ 30 mls/hr Q24H PRN IV 04/13/18 03:45 04/16/18 03:44 Sodium Chloride 500 ml @ 30 mls/hr [id number] PRN IV 04/13/18 03:45 04/16/18 03:44 (Betadine 5% Antisepsis Kit) 1 applic [employer] PRN EACH NARE 04/13/18 03:45 04/16/18 03:44 (Chlorhexidine 2% Cloth) 3 pack [employer] PRN TOPICAL 04/13/18 03:45 04/16/18 03:44 Family History Daughter denies any significant family history Social History Lives with . Daughter from out of state Denies alcohol use Denies tobacco use Denies illicit drug use Physical Exam Vital Signs Vital Signs Date Time Temp Pulse Resp B/P (MAP) Pulse Ox O2 Delivery O2 Flow Rate FiO2 04/13/18 08:00 97.7 100 18 152/61 (91) 96 04/13/18 05:20 102 04/13/18 03:54 98.5 107 20 136/77 (96) 96 04/13/18 02:00 110 19 127/68 (87) 97 Room Air 04/12/18 23:31 99.6 121 16 155/76 (102) 95 04/12/18 20:01 98 20 100 Room Air 04/12/18 19:57 99 20 100 Room Air 04/12/18 19:57 96 18 126/80 (95) 100 Room Air 04/12/18 19:40 98.6 99 18 126/80 (95) 98 Physical Exam GENERAL: This is a well-nourished, well-developed patient, in no apparent distress. SKIN: No rashes, ecchymoses or lesions. Cool and dry. HEAD: Atraumatic. Normocephalic. No temporal or scalp tenderness. EYES: Pupils equal round and reactive. Extraocular motions intact. No scleral icterus. No injection or drainage. ENT: Nose without bleeding, purulent drainage or septal hematoma. Throat without erythema, tonsillar hypertrophy or exudate. Uvula midline. Airway patent. NECK: Trachea midline. No JVD or lymphadenopathy. Supple, nontender, no meningeal signs. CARDIOVASCULAR: Regular rate and rhythm without murmurs, gallops, or rubs. RESPIRATORY: Clear to auscultation. Breath sounds equal bilaterally. No wheezes , rales, or rhonchi. GASTROINTESTINAL: Abdomen soft, non-tender, nondistended. No hepato-splenomegaly , or palpable masses. No guarding. MUSCULOSKELETAL: Extremities without clubbing, cyanosis, or edema. No joint tenderness, effusion, or edema noted. No calf tenderness. Negative Homans sign bilaterally. NEUROLOGICAL: Awake and alert. Cranial nerves II through XII intact. Motor and sensory grossly within normal limits. Five out of 5 muscle strength in all muscle groups. Normal speech. Laboratory Laboratory Tests Test 04/12/18 20:57 04/13/18 00:34 04/13/18 00:37 04/13/18 05:50 White Blood Count 13.4 16.7 Red Blood Count 4.44 4.53 Hemoglobin 13.1 13.5 Hematocrit 38.5 38.9 Mean Corpuscular Volume 86.7 86.0 Mean Corpuscular Hemoglobin 29.6 29.8 Mean Corpuscular Hemoglobin Concent 34.1 34.6 Red Cell Distribution Width 14.8 15.0 Platelet Count 312 384 Mean Platelet Volume 7.2 8.7 Neutrophils (%) (Auto) 78.9 Lymphocytes (%) (Auto) 10.8 Monocytes (%) (Auto) 8.8 Eosinophils (%) (Auto) 0.9 Basophils (%) (Auto) 0.6 Neutrophils # (Auto) 10.6 Lymphocytes # (Auto) 1.4 Monocytes # (Auto) 1.2 Eosinophils # (Auto) 0.1 Basophils # (Auto) 0.1 CBC Comment DIFF FINAL Differential Comment Blood Urea Nitrogen 23 19 Creatinine 1.11 0.87 Random Glucose 103 112 Calcium Level 9.5 8.2 Magnesium Level 1.8 Sodium Level 133 136 Potassium Level 3.2 3.0 Chloride Level 96 99 Carbon Dioxide Level 22.4 26.5 Anion Gap 15 11 Estimat Glomerular Filtration Rate 47 62 Prothrombin Time 10.6 Prothromb Time International Ratio 1.0 Activated Partial Thromboplast Time 21.2 Urine Color YELLOW Urine Turbidity CLEAR Urine pH 5.5 Urine Specific Hope 1.016 Urine Protein NEG Urine Glucose (UA) NEG Urine Ketones 10 Urine Occult Blood TRACE Urine Nitrite NEG Urine Bilirubin NEG Urine Urobilinogen LESS THAN 2.0 Urine Leukocyte Esterase NEG Urine RBC 1 Urine WBC 1 Urine Transitional Epithelial Cells <1 Urine Hyaline Casts 5 Urine Mucus FEW Microscopic Urinalysis Comment CULT NOT INDICATED Result Diagram: 04/13/18 0034 04/13/18 0550 Imaging Last Impressions Abdomen/Pelvis CT 04/13/18 0000 Signed Impressions: CONCLUSION: 1. New fractures of the superior and inferior right pubic rami with hemorrhage in the surrounding musculature and along the undersurface of the inferior righ t anterior abdominal wall. 2. Linear scarring or atelectasis at the lung bases. 3. Bilateral renal cysts. 4. Small calcification in the posterior medial right kidney related to either cortical calcification or a peripheral nonobstructing stone. 5. Mild hiatal hernia. 6. Midline hernia containing mesenteric fat. Pelvis X-Ray 04/12/181955 Signed Impressions: CONCLUSION: There are fractures of the right superior and inferior pubic rami. Head CT 04/12/181955 Signed Impressions: CONCLUSION: 1. No acute hemorrhage, mass or evidence of acute infarction. 2. Focal area of encephalomalacia involving the right occipital lobe at site o f prior hemorrhage. 3. Atrophy and chronic small vessel ischemic change. Chest X-Ray 04/12/181955 Signed Impressions: CONCLUSION: No acute cardiopulmonary disease. Thoracic Spine CT 04/12/18 Signed Impressions: CONCLUSION: 1. Mild compression fracture deformity of the T8 vertebral body with invaginat ion of the superior endplate and surrounding edema. There is no retropulsion. 2. The other vertebral bodies are intact. 3. Osteopenia, scoliosis and degenerative change. Pelvis CT 04/12/18 Signed Impressions: CONCLUSION: 1. Fractures of the right superior and inferior pubic rami are again visualiz ed. 2. Subtle fractures involving the anterior right sacrum. 3. Hemorrhage along the right lower pelvic sidewall. Lumbar Spine CT 04/12/18 Signed Impressions: CONCLUSION: 1. The lumbar vertebral bodies are intact with no acute fracture or malalignme nt. 2. The known right anterior sacral fractures are again visualized. 3. Moderate scoliosis, osteopenia and degenerative disc change. Femur X-Ray 04/12/18 Signed Impressions: CONCLUSION: There are fractures of the right superior and inferior pubic rami. Cervical Spine CT 04/12/18 Signed Impressions: CONCLUSION: 1. No acute cervical spine abnormality is identified. 2. There is significant degenerative disc disease at C2-C3 and extending throu gh C6-C7. There is minimal anterolisthesis of C7 on T1. Caprini VTE Risk Assessment Caprini VTE Risk Assessment: Mod/High Risk (score >= 2) Caprini Risk Assessment Model Point Value = 1 Point Value = 2 Point Value = 3 Point Value = 5 Age 41-60 Minor surgery BMI > 25 kg/m2 Swollen legs Varicose veins or History of unexplained or recurrent spontaneous Oral contraceptives or hormone replacement Sepsis (< 1 month) Serious lung disease, including pneumonia (< 1 month) Abnormal pulmonary function Acute myocardial infarction Congestive heart failure (< 1 month) History of inflammatory bowel disease Medical patient at bed rest Age 61-74 Arthroscopic surgery Major open surgery (> 45 min) Laparoscopic surgery (> 45 min) Malignancy Confined to bed (> 72 hours) Immobilizing plaster cast Central venous access Age >= 75 History of VTE Family history of VTE Factor V Leiden Prothrombin [id number] Lupus anticoagulant Anticardiolipin antibodies Elevated serum homocysteine Heparin-induced thrombocytopenia Other congenital or acquired thrombophilia Stroke (< 1 month) Elective arthroplasty Hip, pelvis, or leg fracture Acute spinal cord injury (< 1 month) Prophylaxis Regimen Total Risk Factor Score Risk Level Prophylaxis Regimen 0-1 Low Early ambulation 2 Moderate Order ONE of the following: *Sequential Compression Device (SCD) *Heparin 5000 units SQ BID 3-4 Higher Order ONE of the following medications: *Heparin 5000 units SQ TID *Enoxaparin/Lovenox 40 mg SQ daily (WT < 150 kg, CrCl > 30 mL/min) *Enoxaparin/Lovenox 30 mg SQ daily (WT < 150 kg, CrCl > 10-29 mL/min) *Enoxaparin/Lovenox 30 mg SQ BID (WT < 150 kg, CrCl > 30 mL/min) AND/OR *Sequential Compression Device (SCD) 5 or more Highest Order ONE of the following medications: *Heparin 5000 units SQ TID (Preferred with Epidurals) *Enoxaparin/Lovenox 40 mg SQ daily (WT < 150 kg, CrCl > 30 mL/min) *Enoxaparin/Lovenox 30 mg SQ daily (WT < 150 kg, CrCl > 10-29 mL/min) *Enoxaparin/Lovenox 30 mg SQ BID (WT < 150 kg, CrCl > 30 mL/min) AND *Sequential Compression Device (SCD) Assessment and Plan Problem List: (1) Fracture of pubic ramus ICD Code: S32.599A - Other specified fracture of unspecified pubis, initial encounter for closed fracture (2) Hypertension ICD Code: I10 - Hypertension Status: Acute Assessment and Plan Patient is an 83-year-old female with primary medical history of HTN, HLD, diverticulitis who came into the hospital status post fall Status post fall Right pubic rami fracture -Pain management -Orthopedic consult. Appreciate recommendations. -N.p.o. for now possible procedure, will resume diet if conservative treatment is needed Hypokalemia -Potassium replacement -Check magnesium -Monitor BMP HTN HLD -Resume home medication DVT prop SCDs Code Status Full Code Discussed Condition With Patient, daughter, nursing Physician Certification 2 Midnight Certification Type: Admission for Inpatient Services Order for Inpatient Services The services are ordered in accordance with Medicare regulations or non- Medicare payer requirements, as applicable. In the case of services not specified as inpatient-only, they are appropriately provided as inpatient services in accordance with the 2-midnight benchmark. Estimated LOS (days): 2 days is the estimated time the patient will need to remain in the hospital, assuming treatment plan goals are met and no additional complications. Post-Hospital Plan: [facility] Joe Ramsay Apr 13, 2018 12:14
--- NOTE | 2018-04-13 16:57 | MB ---
cc: Harjit Asher MD, Brian R MD DATE: 04/13/2018 REASON FOR CONSULTATION: Pelvic fractures. HISTORY OF PRESENT ILLNESS: The patient is an 83-year-old female. I obtained a history from review of the chart but also discussion with the patient's daughter. She has significant dementia. She apparently had injury of the thoracic spine recently. Looking through the images, it seems as if she has a T8 compression fracture. She was admitted here to the hospital. I am still trying to determine if she was evaluated by an orthopedic surgeon or a neurosurgeon at that time. The patient went to a rehab facility for about a week, got discharged and went home. After she went home, she had a walker at the bedside but she got out of bed without assistance, according to the daughter, and fell and developed significant groin pain on the right side. The patient was brought to [facility]. X-rays and a CT scan were performed, showed that she had pelvic fractures. She is not complaining of any specific numbness or tingling radiating down the leg. PAST MEDICAL HISTORY: The patient's medical history is positive for tachycardia, high cholesterol, diverticulitis, glaucoma, pneumonia. PAST SURGICAL HISTORY: Abdominal surgery, hysterectomy, bilateral knee replacements. REVIEW OF SYSTEMS: Not very obtainable due to her dementia. SOCIAL HISTORY: The patient does not drink alcohol. Daughter is at the bedside. PHYSICAL EXAMINATION: GENERAL: The patient does show signs of dementia with some confusion. She is in mild to moderate distress due to pain. HEENT: Head is atraumatic. Oropharynx is moist. Extraocular muscles are intact. NECK: Supple. LUNGS: No audible wheeze with normal respiratory effort. HEART: Regular rate and rhythm. ABDOMEN: Soft, nontender. BACK: Shows no CVA tenderness. EXTREMITIES: She actively moves about the upper extremities and has no tenderness about the bilateral shoulders, elbows or wrists. Her right leg has pain with even log rolling of the right hip. She has tenderness about the right pelvis. She has no pain with log rolling of the left hip. She has bilateral well-healed incisions in the anterior aspect of the knees with no effusions. There is no varus or valgus stress instability. She moves her toes well in bilateral lower extremities. She has 1+ dorsalis pedis pulse of bilateral lower extremities. Normal sensation distally. VITAL SIGNS: Show temperature 97.6, pulse is 96, respirations 18, blood pressure 134/66. LABORATORY STUDIES: Shows a white cell count of 13.4, hematocrit of 38.5. Coagulation studies: INR is 1.0. Chemistries: Creatinine is 1.11. IMAGING STUDIES: Multiple images reviewed including x-rays and CT scan of the pelvis that shows the patient has mildly displaced right superior and inferior pubic rami fractures, small right sacral fracture is noted as well. She also has a CT scan of the thoracic spine, which does show a mild compression deformity at superior aspect of T8. X-rays of the femur showed no fractures about the hip and she had a knee replacement that was noted. IMPRESSION: 1. Right-sided superior and inferior pubic rami fracture with a small sacral fracture. 2. T8 compression fracture. DECISION MAKING: We need to check and see as far as management of the compression fracture is concerned, as possibly the patient may benefit from some bracing although, given the dementia, it is possible that she may not be able to manage with a brace. As for the pelvis concern, I recommend nonoperative management for the pelvis. She can weight bear as tolerated on the right lower extremity. We will need to follow this closely to make sure she does not have displacement. We will discuss with the family the option of obtaining a brace for the back. She will likely need to go to a rehab facility. She needs to followup in the office in 1-2 weeks post discharge for repeat x-rays, AP pelvis and thoracic spine, AP and lateral. All questions have been answered. MD JUAN DIEGO Be/ , 01:33 PM , 04:56 PM
[2018-04-13] MEDS: ATORVASTATIN 20 MG TAB PO SCH (22:05)
[2018-04-13] MEDS: LATANOPROST 0.005% OPHT SOLN 2.5 ML BTL EACH EYE SCH (22:05)
[2018-04-14] VITALS (7 sets, daily range): BP systolic 132–164; BP diastolic 61–73; PULSE 96–102; RESP 16–18; TEMP 97.8–99.1; O2SAT 93–97
[2018-04-14 05:21] LABS: HEMATOCRIT 33.5 % (35.0-46.0); HEMOGLOBIN 11.6 GM/DL (11.6-15.3); MEAN CELL VOLUME 86.2 FL (80.0-100.0); MEAN CORPUSCULAR HEMOGLOBIN 29.7 PG (27.0-34.0); MEAN CORPUSCULAR HGB CONC 34.5 % (32.0-36.0); PLATELET COUNT 240 TH/MM3 (150-450); RED BLOOD COUNT 3.89 MIL/MM3 (4.00-5.30); RED CELL DISTRIBUTION WIDTH 14.8 % (11.6-17.2); WHITE BLOOD COUNT 6.4 TH/MM3 (4.0-11.0)
[2018-04-14] MEDS: SODIUM CHLOR 0.9% 1000 ML INJ 1,000 ML IV SCH ×2 (05:43→20:07)
[2018-04-14 05:45] LABS: BICARBONATE 24.9 MEQ/L (21.0-32.0); CALCIUM 8.2 MG/DL (8.5-10.1); CREATININE 0.71 MG/DL (0.50-1.00)
[2018-04-14] MEDS ORDERED: POTASSIUM CHLORIDE 10 MEQ CONTROLLED RELEASE TAB PO ONE (08:45)
--- NOTE | 2018-04-14 08:54 | EKG ---
Date Performed: 04/13/2018 Time Performed: 05:21:52 PTAGE: 83 years EKG: Sinus tachycardia Inferior/lateral ST-T changes are nonspecific Borderline ECG PREVIOUS TRACING 05/12/15 Since previous tracing, heart rate is faster and the nonspecific ST-T changes slightly more prominent. DOCTOR: Will Jorge Interpretating Date/Time 04/14/2018 08:53:34
[2018-04-14] MEDS: BRIMONIDINE TARTRATE 0.15% OPHT SOLN 5 ML BTL EACH EYE SCH ×3 (09:00→18:00)
[2018-04-14] MEDS: SODIUM CHLORIDE 0.9% FLUSH 10 ML FLUSH IV FLUSH SCH ×2 (09:00→20:05)
[2018-04-14] MEDS ORDERED: POTASSIUM CHLOR 20 MEQ PREMIX 100 ML IV ONE (09:00)
[2018-04-14] MEDS ORDERED: ACETAMINOPHEN/HYDROcodone 325 MG/7.5 MG TAB PO PRN (10:30)
--- NOTE | 2018-04-14 10:30 | PD.ORT.PN ---
Subjective Subjective Remarks Patient alert and appropriate with questioning. Patient has baseline of dementia. Patient reports pain to the right hip/pelvis with movement. Patient denies tingling or numbness to the bilateral lower extremities. Objective Vitals Vital Signs Date Time Temp Pulse Resp B/P (MAP) Pulse Ox O2 Delivery O2 Flow Rate FiO2 04/14/18 08:00 99.1 99 16 132/61 (84) 93 04/14/18 04:20 98.1 97 18 134/68 (90) 96 04/14/18 03:52 96 04/14/18 00:25 97.8 101 18 132/64 (86) 94 04/13/18 23:47 87 04/13/18 19:55 97.9 99 18 137/60 (85) 95 04/13/18 16:00 98.6 96 19 146/65 (92) 94 04/13/18 12:00 97.6 96 18 134/66 (88) 97 I/O 04/13/18 04/13/18 04/13/18 04/14/18 04/14/18 04/14/18 07:00 15:00 23:00 07:00 15:00 23:00 Intake Total 1000 ml 290 ml 400 ml Balance 1000 ml 290 ml 400 ml Intake Oral 0 ml 290 ml 400 ml IV Total 1000 ml # Voids 3 2 4 # Bowel Movements 0 0 Result Diagram: 04/14/18 0459 04/14/18 0459 Objective Remarks Patient has limited AROM and PROM of the right hip secondary to pain. Patient moves bilateral upper and left lower extremity WNLs. Patient has 2 + pedal pulses bilaterally. + SILT to bilateral upper and lower extremities. No tenderness to palpation of thoracic or lumbar spine with midline palpation. No paraspinal tenderness to palpation. Skin is intact with no swelling to the back. No tenderness or swelling to the bilateral calves. Assessment & Plan Assessment and Plan Right superior and inferior pubic rami fractures T8 compression fracture Sacral fracture 1. Patient has TLSO brace that was ordered for T8 compression fracture 2. WBAT on the RLE 3. Conservative management of the T8 compression fracture and pelvic fractures 4. Stable per ortho for discharge once medically cleared 5. F/U in the office in 1-[address] Asher or TRAVIS Daniels Daniel Scott ARNP Apr 14, 2018 10:30
[2018-04-14] MEDS: DOCUSATE SODIUM 50 MG/SENNA 8.6 MG TAB PO SCH ×2 (10:35→20:06)
[2018-04-14] MEDS: HYDROCHLOROTHIAZIDE 12.5 MG CAP PO SCH (10:35)
--- NOTE | 2018-04-14 12:03 | HHI.PR ---
Subjective Remarks Follow-up visit right pubic rami fracture, T8 compression fracture, dementia. Patient seen and examined today laying in bed. Patient easily irritable. States she is cold. Otherwise, denies SOB/ dyspnea. Denies chest pain, palpitations, headaches, dizziness. Denies fevers, chills, n/v/d. Denies dysuria. Objective Vitals Vital Signs Date Time Temp Pulse Resp B/P (MAP) Pulse Ox O2 Delivery O2 Flow Rate FiO2 04/14/18 08:00 99.1 99 16 132/61 (84) 93 04/14/18 04:20 98.1 97 18 134/68 (90) 96 04/14/18 03:52 96 04/14/18 00:25 97.8 101 18 132/64 (86) 94 04/13/18 23:47 87 04/13/18 19:55 97.9 99 18 137/60 (85) 95 04/13/18 16:00 98.6 96 19 146/65 (92) 94 I/O 04/13/18 04/13/18 04/13/18 04/14/18 04/14/18 04/14/18 07:00 15:00 23:00 07:00 15:00 23:00 Intake Total 1000 ml 290 ml 400 ml Balance 1000 ml 290 ml 400 ml Intake Oral 0 ml 290 ml 400 ml IV Total 1000 ml # Voids 3 2 4 # Bowel Movements 0 0 Result Diagram: 04/14/18 0459 04/14/18 0459 Imaging Last Impressions Abdomen/Pelvis CT 04/13/18 0000 Signed Impressions: CONCLUSION: 1. New fractures of the superior and inferior right pubic rami with hemorrhage in the surrounding musculature and along the undersurface of the inferior righ t anterior abdominal wall. 2. Linear scarring or atelectasis at the lung bases. 3. Bilateral renal cysts. 4. Small calcification in the posterior medial right kidney related to either cortical calcification or a peripheral nonobstructing stone. 5. Mild hiatal hernia. 6. Midline hernia containing mesenteric fat. Pelvis X-Ray 04/12/181955 Signed Impressions: CONCLUSION: There are fractures of the right superior and inferior pubic rami. Head CT 04/12/181955 Signed Impressions: CONCLUSION: 1. No acute hemorrhage, mass or evidence of acute infarction. 2. Focal area of encephalomalacia involving the right occipital lobe at site o f prior hemorrhage. 3. Atrophy and chronic small vessel ischemic change. Chest X-Ray 04/12/181955 Signed Impressions: CONCLUSION: No acute cardiopulmonary disease. Thoracic Spine CT 04/12/18 Signed Impressions: CONCLUSION: 1. Mild compression fracture deformity of the T8 vertebral body with invaginat ion of the superior endplate and surrounding edema. There is no retropulsion. 2. The other vertebral bodies are intact. 3. Osteopenia, scoliosis and degenerative change. Pelvis CT 04/12/18 Signed Impressions: CONCLUSION: 1. Fractures of the right superior and inferior pubic rami are again visualiz ed. 2. Subtle fractures involving the anterior right sacrum. 3. Hemorrhage along the right lower pelvic sidewall. Lumbar Spine CT 04/12/18 Signed Impressions: CONCLUSION: 1. The lumbar vertebral bodies are intact with no acute fracture or malalignme nt. 2. The known right anterior sacral fractures are again visualized. 3. Moderate scoliosis, osteopenia and degenerative disc change. Femur X-Ray 04/12/18 Signed Impressions: CONCLUSION: There are fractures of the right superior and inferior pubic rami. Cervical Spine CT 04/12/18 Signed Impressions: CONCLUSION: 1. No acute cervical spine abnormality is identified. 2. There is significant degenerative disc disease at C2-C3 and extending throu gh C6-C7. There is minimal anterolisthesis of C7 on T1. Objective Remarks GENERAL: This is a well-nourished, well-developed patient, in no apparent distress. SKIN: Warm and dry. HEENT: Normocephalic. Pupils equal round and reactive. Nose without bleeding. Airway patent. NECK: Trachea midline. No JVD. Supple. CARDIOVASCULAR: Regular rate and rhythm without murmurs, gallops, or rubs. RESPIRATORY: Clear to auscultation. Breath sounds equal bilaterally. No wheezes , rales, or rhonchi. GASTROINTESTINAL: Abdomen soft, non-tender, nondistended. Bowel Sounds normoactive x4. MUSCULOSKELETAL: Extremities without clubbing, cyanosis, or edema. Right lower extremity tenderness to dorsiflex, and right hip tenderness to palpate NEUROLOGICAL: Awake and alert. Oriented to person. Moves all extremities. Normal speech. A/P Problem List: (1) Fracture of pubic ramus ICD Code: S32.599A - Other specified fracture of unspecified pubis, initial encounter for closed fracture (2) Hypertension ICD Code: I10 - Hypertension Status: Acute Assessment and Plan Patient is an 83-year-old female with primary medical history of HTN, HLD, diverticulitis who came into the hospital status post fall Status post fall Right pubic rami fracture -Pain management -Orthopedic consult. Appreciate recommendations. -As per Ortho conservative treatment. Physical therapy to eval and treat T8 compression fracture -Brace when out of bed -Physical therapy Hypokalemia -Potassium replacement -Magnesium 2.0 -Monitor BMP -Patient has chronic hypokalemia were and she is taking 20 M EQ's of potassium at home. Will restart home medications. HTN HLD -Resume home medication hydrochlorothiazide -Monitor BP trend DVT prop SCDs Discharge Planning Plan to DC home to SNF, case management to assist Joe Ramsay Apr 14, 2018 12:03
[2018-04-14] MEDS: ACETAMINOPHEN/HYDROcodone 325 MG/5 MG TAB PO PRN (13:30)
[2018-04-14] MEDS: ATORVASTATIN 20 MG TAB PO SCH (20:06)
[2018-04-14] MEDS: LATANOPROST 0.005% OPHT SOLN 2.5 ML BTL EACH EYE SCH (20:07)
[2018-04-15] VITALS: BP 142/80; PULSE 108; RESP 18; TEMP 97.9; O2SAT 96
[2018-04-15] MEDS: ACETAMINOPHEN/HYDROcodone 325 MG/5 MG TAB PO PRN ×2 (00:11→12:49)
[2018-04-15 04:00] VITALS: BP 138/60; PULSE 89; RESP 18; TEMP 97.4; O2SAT 95
[2018-04-15 08:00] VITALS: BP 143/65; PULSE 95; RESP 16; TEMP 97.9; O2SAT 95
[2018-04-15] MEDS ORDERED: HYDR-3516 PO (08:39)
[2018-04-15] MEDS ORDERED: MAGN30S PO (08:39)
[2018-04-15] MEDS ORDERED: ASPI-183 PO (08:41)
[2018-04-15] MEDS: HYDROCHLOROTHIAZIDE 12.5 MG CAP PO SCH (08:44)
[2018-04-15] MEDS: BRIMONIDINE TARTRATE 0.15% OPHT SOLN 5 ML BTL EACH EYE SCH (08:45)
[2018-04-15] MEDS: DOCUSATE SODIUM 50 MG/SENNA 8.6 MG TAB PO SCH (08:45)
[2018-04-15] MEDS: SODIUM CHLORIDE 0.9% FLUSH 10 ML FLUSH IV FLUSH SCH (08:45)
[2018-04-15] MEDS ORDERED: POTASSIUM CHLORIDE 20 MEQ CONTROLLED RELEASE TAB PO SCH (09:00)
[2018-04-15] MEDS: SODIUM CHLOR 0.9% 1000 ML INJ 1,000 ML IV SCH (10:19)
--- NOTE | 2018-04-15 11:24 | HHI.PR ---
Subjective Remarks Pain is controlled. Please tell me what is going on. Where am I going "? Objective Vitals Vital Signs Date Time Temp Pulse Resp B/P (MAP) Pulse Ox O2 Delivery O2 Flow Rate FiO2 04/15/18 07:02 Room Air 04/15/18 04:00 97.4 89 18 138/60 (86) 95 04/15/18 00:00 97.9 108 18 142/80 (100) 96 04/14/18 19:58 98.4 102 18 133/69 (90) 96 04/14/18 16:00 97.8 101 18 164/73 (103) 96 04/14/18 12:00 98.4 99 16 143/65 (91) 97 I/O 04/14/18 04/14/18 04/14/18 04/15/18 04/15/18 04/15/18 07:00 15:00 23:00 07:00 15:00 23:00 Intake Total 400 ml 480 ml 100 ml 240 ml Balance 400 ml 480 ml 100 ml 240 ml Intake Oral 400 ml 480 ml 240 ml IV Total 100 ml # Voids 4 3 2 # Bowel Movements 3 1 Result Diagram: 04/14/18 0459 04/14/18 0459 Objective Remarks GENERAL: This is a well-nourished, well-developed patient, in no apparent distress. CARDIOVASCULAR: Regular rate and rhythm RESPIRATORY: Clear to auscultation. Breath sounds equal bilaterally. No wheezes , rales, or rhonchi. GASTROINTESTINAL: Abdomen soft, non-tender, nondistended. Normal active bowel sounds MUSCULOSKELETAL: Extremities without clubbing, cyanosis, or edema. NEURO: Confused, only oriented to person not to place time or situation did follow directions squeeze with bilateral hands A/P Problem List: (1) Fracture of pubic ramus ICD Code: S32.599A - Other specified fracture of unspecified pubis, initial encounter for closed fracture Status: Acute (2) Hypertension ICD Code: I10 - Hypertension Status: Chronic Assessment and Plan Patient is an 83-year-old female with primary medical history of HTN, HLD, diverticulitis who came into the hospital status post fall Status post fall Right pubic rami fracture -Pain management -Orthopedic consult. Appreciate recommendations. -As per Ortho conservative treatment. Physical therapy to eval and treat T8 compression fracture -Brace when out of bed -Physical therapy Hypokalemia -Potassium replacement; may need to go to 40 mEq p.o. daily -Magnesium 2.0 -Monitor BMP -Patient has chronic hypokalemia were and she is taking 20 M EQ's of potassium at home. Will restart home medications. HTN,chronic essential - resume home antihypertensives HLD -Resume home medication hydrochlorothiazide -Monitor BP trend DVT prop SCDs Discharge Planning [facility]. Problem Qualifiers (1) Fracture of pubic ramus: Qualified Codes: S32.591A - Other specified fracture of right pubis, initial encounter for closed fracture (2) Hypertension: Qualified Codes: I10 - Essential (primary) hypertension Gini Ortega MD Apr 15, 2018 11:24
[2018-04-15] MEDS ORDERED: POTA-163 PO (11:26)
--- NOTE | 2018-04-15 11:29 | HHI.DS ---
Discharge Summary Admission Date Apr 12, 2018 at 23:51 Discharge Date: Apr 15, 2018 Admitting Diagnosis Pelvic frature; t8 compression fracture; dementia (1) Fracture of pubic ramus ICD Code: S32.599A - Other specified fracture of unspecified pubis, initial encounter for closed fracture Status: Acute (2) Hypertension ICD Code: I10 - Hypertension Status: Chronic Procedures none Brief History - From Admission Patient is an 83-year-old female with primary medical history of HTN, HLD, diverticulitis who came into the hospital status post fall. He was admitted to the hospital secondary to back pain and was discharged to rehab [facility]. [facility] they have recommended that patient should be in the lock unit she always wanted to go home and get out of the unit. She was discharged in [facility] and went home with family. At home, patient had a fall just minutes after daughter and father left her in her room. Patient seen and examined today. Daughter at the bedside. Patient states she is doing well and there is nothing wrong with her and she wanted to go home. Poor historian. All histories taken from daughter. Denies pain and discomfort. Denies SOB/ dyspnea. Denies chest pain, palpitations, headaches, dizziness. Denies fevers, chills, n/v/d. Denies dysuria. CBC/BMP: 04/14/18 0459 04/14/18 0459 Significant Findings Laboratory Tests Test 04/12/18 20:57 04/13/18 00:34 04/13/18 00:37 04/13/18 05:50 White Blood Count 13.4 TH/MM3 (4.0-11.0) 16.7 TH/MM3 (4.0-11.0) Neutrophils (%) (Auto) 78.9 % (16.0-70.0) Monocytes (%) (Auto) 8.8 % (0.0-8.0) Neutrophils # (Auto) 10.6 TH/MM3 (1.8-7.7) Monocytes # (Auto) 1.2 TH/MM3 (0-0.9) Blood Urea Nitrogen 23 MG/DL (7-18) 19 MG/DL (7-18) Creatinine 1.11 MG/DL (0.50-1.00) Sodium Level 133 MEQ/L (136-145) Potassium Level 3.2 MEQ/L (3.5-5.1) 3.0 MEQ/L (3.5-5.1) Chloride Level 96 MEQ/L (98-107) Estimat Glomerular Filtration Rate 47 ML/MIN (>89) 62 ML/MIN (>89) Activated Partial Thromboplast Time 21.2 SEC (24.3-30.1) Urine Ketones 10 mg/dL (NEG) Urine Occult Blood TRACE (NEG) Urine Mucus FEW /lpf (OCC) Random Glucose 112 MG/DL (74-106) Calcium Level 8.2 MG/DL (8.5-10.1) Test 04/14/18 04:59 04/14/18 06:13 04/15/18 10:15 Red Blood Count 3.89 MIL/MM3 (4.00-5.30) Hematocrit 33.5 % (35.0-46.0) Calcium Level 8.2 MG/DL (8.5-10.1) Potassium Level 3.0 MEQ/L (3.5-5.1) Estimat Glomerular Filtration Rate 79 ML/MIN (>89) Imaging Last Impressions Abdomen/Pelvis CT 04/13/18 0000 Signed Impressions: CONCLUSION: 1. New fractures of the superior and inferior right pubic rami with hemorrhage in the surrounding musculature and along the undersurface of the inferior righ t anterior abdominal wall. 2. Linear scarring or atelectasis at the lung bases. 3. Bilateral renal cysts. 4. Small calcification in the posterior medial right kidney related to either cortical calcification or a peripheral nonobstructing stone. 5. Mild hiatal hernia. 6. Midline hernia containing mesenteric fat. Pelvis X-Ray 04/12/181955 Signed Impressions: CONCLUSION: There are fractures of the right superior and inferior pubic rami. Head CT 04/12/181955 Signed Impressions: CONCLUSION: 1. No acute hemorrhage, mass or evidence of acute infarction. 2. Focal area of encephalomalacia involving the right occipital lobe at site o f prior hemorrhage. 3. Atrophy and chronic small vessel ischemic change. Chest X-Ray 04/12/181955 Signed Impressions: CONCLUSION: No acute cardiopulmonary disease. Thoracic Spine CT 04/12/18 Signed Impressions: CONCLUSION: 1. Mild compression fracture deformity of the T8 vertebral body with invaginat ion of the superior endplate and surrounding edema. There is no retropulsion. 2. The other vertebral bodies are intact. 3. Osteopenia, scoliosis and degenerative change. Pelvis CT 04/12/18 Signed Impressions: CONCLUSION: 1. Fractures of the right superior and inferior pubic rami are again visualiz ed. 2. Subtle fractures involving the anterior right sacrum. 3. Hemorrhage along the right lower pelvic sidewall. Lumbar Spine CT 04/12/18 Signed Impressions: CONCLUSION: 1. The lumbar vertebral bodies are intact with no acute fracture or malalignme nt. 2. The known right anterior sacral fractures are again visualized. 3. Moderate scoliosis, osteopenia and degenerative disc change. Femur X-Ray 04/12/18 Signed Impressions: CONCLUSION: There are fractures of the right superior and inferior pubic rami. Cervical Spine CT 04/12/18 Signed Impressions: CONCLUSION: 1. No acute cervical spine abnormality is identified. 2. There is significant degenerative disc disease at C2-C3 and extending throu gh C6-C7. There is minimal anterolisthesis of C7 on T1. PE at Discharge GENERAL: This is a well-nourished, well-developed patient, in no apparent distress. CARDIOVASCULAR: Regular rate and rhythm RESPIRATORY: Clear to auscultation. Breath sounds equal bilaterally. No wheezes , rales, or rhonchi. GASTROINTESTINAL: Abdomen soft, non-tender, nondistended. Normal active bowel sounds MUSCULOSKELETAL: Extremities without clubbing, cyanosis, or edema. NEURO: Confused, only oriented to person not to place time or situation did follow directions squeeze with bilateral hands Hospital Course These are the medical issues addressed during this hospitalization: Status post fall Right pubic rami fracture -Pain management with conservative nonsurgical management during hospitalization per Dr. Asher -Orthopedic consult. Appreciate recommendations. - T8 compression fracture -Brace when out of bed -Physical therapy Hypokalemia -Potassium replacement; increase home dose from 20 mEq to 40 mEq p.o. daily -Magnesium 2.0 -Monitor BMP as an outpatient upon discharge HTN,chronic essential - resume home antihypertensives during hospitalization HLD -Resume home medication hydrochlorothiazide -Monitor BP trend DVT prop SCDs, aspirin At this time, patient has gained maximum benefit from hospitalization ready to be discharged to rehab Pt Condition on Discharge: Good Discharge Disposition: Discharge to SNF Discharge Time: <= 30 minutes Discharge Instructions DIET: Follow Instructions for: Heart Healthy Diet Activities you can perform: Weight Bearing as Gini Chery MD Apr 15, 2018 11:29
[2018-04-15] MEDS ORDERED: POTASSIUM CHLORIDE 20 MEQ CONTROLLED RELEASE TAB PO ONE (11:30)
[2018-04-15 12:07] LABS: BICARBONATE 21.7 MEQ/L (21.0-32.0); CALCIUM 8.7 MG/DL (8.5-10.1); CREATININE 0.76 MG/DL (0.50-1.00)
== END 2018-04-15 13:18 | DRG 536 ==
LOC: NEPC 19:27 → NEDA 23:51 → N06A 04-13 03:08
PROVIDERS: ADMIT Family Medicine; ATTEND Family Medicine
DX: S32.511A Fracture of superior rim of right pubis, initial encounter for closed fracture (principal); S32.10XA Unspecified fracture of sacrum, initial encounter for closed fracture; F03.90 Unspecified dementia, unspecified severity, without behavioral disturbance, psychotic disturbance, mood disturbance, and anxiety; M48.54XA Collapsed vertebra, not elsewhere classified, thoracic region, initial encounter for fracture; E87.6 Hypokalemia; S32.591A Other specified fracture of right pubis, initial encounter for closed fracture; I10 Essential (primary) hypertension; E78.5 Hyperlipidemia, unspecified; H40.9 Unspecified glaucoma; W19.XXXA Unspecified fall, initial encounter; Y92.003 Bedroom of unspecified non-institutional (private) residence as the place of occurrence of the external cause; Z86.73 Personal history of transient ischemic attack (TIA), and cerebral infarction without residual deficits; Z91.19 Patient's noncompliance with other medical treatment and regimen; Z96.653 Presence of artificial knee joint, bilateral
CPT/HCPCS: 51702; 70450; 71045; 72125; 72128; 72131; 72170; 72192; 73551; 74177; 80048; 81001; 83735; 85025; 85027; 85610; 85730; 86850; 86900; 86901; 93005; 96374; 96375; J2270; J2765; J3480; J7030; J7040; L0200; L0484; Q9967